=== PATIENT | female | born 1950 | race Two or more races ===

== ENCOUNTER 2021-11-30 09:14 | Outpatient (REF) | payer OTHER, SELFPAY ==
[2021-11-30 10:47] LABS: MANUAL DIFF FLAG NO
[2021-11-30 11:22] LABS: Basophils Absolute Auto 0.1 X10*3/uL (0.0-0.2); Basophils Percent Auto 0.9 % (0-2); Eosinophils Absolute Auto 0.2 X10*3/uL (0.0-0.4); Eosinophils Percent Auto 3.1 % (0-4); Hematocrit 40.5 % (37.0-47.0); Hemoglobin 12.6 g/dl (12.0-16.0); Imm Gran Abs Auto 0.02 X10*3/uL (0.00-0.03); Imm Gran Pct Auto 0.4 % (0.0-0.4); Lymphocytes Absolute Auto 0.7 X10*3/uL (1.2-4.9); Lymphocytes Percent Auto 12.3 % (20-40); Mean Corpuscular HGB Conc 31.1 g/dl (31.0-35.0); Mean Corpuscular Hemoglobin 25.7 pg (27.0-33.0); Mean Corpuscular Volume 82.5 fL (80.0-98.0); Monocytes Absolute Auto 0.5 X10*3/uL (0.1-1.2); Monocytes Percent Auto 8.8 % (2-11); Neutrophils Absolute Auto 4.1 x10*3/uL (2.0-8.3); Neutrophils Percent Auto 74.5 % (45-73); Platelet Count 308 X10*3/uL (160-400); Red Blood Count 4.91 X10*6/uL (4.20-5.50); Red Cell Distribution Width 16.4 % (11.0-16.0); White Blood Count 5.5 X10*3/uL (4.8-10.8)
[2021-11-30 12:02] LABS: B Type Natriuretic Peptide 33 pg/mL (<100)
[2021-11-30 12:04] LABS: Alanine Aminotransferase 23 U/L (0-31); Alkaline Phosphatase 190 U/L (39-117); Anion Gap 15 (12-20); Aspartate Amino Transferase 27 U/L (5-31); Bilirubin Direct 0.6 mg/dL (0.0-0.5); Bilirubin Total 1.4 mg/dL (0.0-1.0); Blood Urea Nitrogen 21 mg/dL (9-16); Carbon Dioxide 25 mmol/L (22-29); Chloride 103 mmol/L (96-108); Estimated Glomerular Filt Rate > 60; Glucose Random 97 mg/dL (60-115); Lactate Dehydrogenase 243 U/L (122-220); Potassium 4.1 mmol/L (3.3-5.1); Sodium 139 mmol/L (135-145); Total Protein 8.9 g/dL (6.5-8.0)
[2021-11-30 12:21] LABS: Erythrocyte Sedimentation Rate 53 MM/HR (0-20)
[2021-12-02 23:02] LABS: ANA Pattern 2 Nuclear, Homogeneous; Anti Nuclear Antibody Screen POSITIVE (NEGATIVE)
[2021-12-05 17:21] LABS: Asperg fumigatus Precip Abs NEGATIVE (NEGATIVE); Micropoly faeni Abs NEGATIVE (NEGATIVE); Pigeon serum Abs NEGATIVE (NEGATIVE); Saccharo pora viridis Abs NEGATIVE (NEGATIVE); Thermo candidus Abs NEGATIVE (NEGATIVE); Thermoa vulgaris #1 NEGATIVE (NEGATIVE)
[2021-12-07 09:27] LABS: Angiotensin Converting Enzyme 157 U/L (9-67)
== END 2021-11-30 09:15 | disposition home or self-care (01) ==
LOC: HO.LAB 09:14
PROVIDERS: PCP Family Medicine; Visit Provider Hospitalist
DX: R60.0 Localized edema (principal); D86.9 Sarcoidosis, unspecified; K74.60 Unspecified cirrhosis of liver; R91.8 Other nonspecific abnormal finding of lung field; R59.1 Generalized enlarged lymph nodes; I50.9 Heart failure, unspecified
CPT/HCPCS: 36415; 80048; 80076; 82164; 83615; 83880; 85025; 85652; 86038; 86039; 86331; 86606; 86609; 94618; 99202

== ENCOUNTER 2021-12-25 08:46 | Outpatient (REF) | payer OTHER, SELFPAY ==
--- NOTE | 2021-12-25 13:17 | PFT_ITS ---
Forced vital capacity 80%, FEV1 84%. FEF 25/75, 95% and MVV 71%. Post bronchodilator therapy, there is no change. Total lung capacity 72% and residual volume 67%. Diffusion capacity 67%. CONCLUSION: Mild degree of restrictive pulmonary disorder. No obstructive airway disorder. No response to bronchodilator therapy. MD MARIFER Andrew/MOHAN / [id number]
== END 2021-12-25 08:47 | disposition home or self-care (01) ==
LOC: HO.RESP 08:46
PROVIDERS: PCP Family Medicine; Visit Provider Hospitalist
DX: R06.00 Dyspnea, unspecified (principal); D86.9 Sarcoidosis, unspecified
CPT/HCPCS: 94060; 94727; 94729

== ENCOUNTER → 2022-01-05 08:35 | Outpatient (BNVA) | payer OTHER, SELFPAY | PROVIDERS: PCP Family Medicine; Visit Provider Hospitalist | DX: D86.9 Sarcoidosis, unspecified (principal); R91.8 Other nonspecific abnormal finding of lung field; R60.0 Localized edema; K74.60 Unspecified cirrhosis of liver; R59.1 Generalized enlarged lymph nodes; Z79.899 Other long term (current) drug therapy | CPT/HCPCS: 99212 ==

== ENCOUNTER 2022-03-22 11:44 | Outpatient (REF) | payer OTHER, SELFPAY ==
[2022-03-22 13:46] LABS: MANUAL DIFF FLAG NO
[2022-03-22 13:57] LABS: Hemoglobin 12.4 g/dl (12.0-16.0); Imm Gran Abs Auto 0.04 X10*3/uL (0.00-0.03); PLT CLUMP 1; Red Cell Distribution Width 18.4 % (11.0-16.0); SCAN SMEAR FLAG 1
[2022-03-22 13:59] LABS: Basophils Percent Auto 0.5 % (0-2); Eosinophils Absolute Auto 0.1 X10*3/uL (0.0-0.4); Eosinophils Percent Auto 1.9 % (0-4); Imm Gran Pct Auto 0.6 % (0.0-0.4); Lymphocytes Absolute Auto 1.2 X10*3/uL (1.2-4.9); Lymphocytes Percent Auto 19.7 % (20-40); Mean Corpuscular Hemoglobin 26.3 pg (27.0-33.0); Mean Corpuscular Volume 84.7 fL (80.0-98.0); Monocytes Absolute Auto 0.5 X10*3/uL (0.1-1.2); Monocytes Percent Auto 7.9 % (2-11); Neutrophils Absolute Auto 4.3 x10*3/uL (2.0-8.3); Neutrophils Percent Auto 69.4 % (45-73); Red Blood Count 4.72 X10*6/uL (4.20-5.50)
[2022-03-22 14:01] LABS: INTERNATIONAL NORM RATIO 1.2 (0.9-1.1); Prothrombin Time 13.5 SEC (10.0-13.1)
[2022-03-22 14:20] LABS: Alanine Aminotransferase 25 U/L (0-31); Albumin Level 4.1 g/dL (3.5-5.0); Alkaline Phosphatase 97 U/L (39-117); Anion Gap 11 (12-20); Aspartate Amino Transferase 17 U/L (5-31); Bilirubin Total 1.4 mg/dL (0.0-1.0); Blood Urea Nitrogen 18 mg/dL (9-16); Calcium 9.7 mg/dL (8.4-10.2); Carbon Dioxide 28 mmol/L (22-29); Chloride 107 mmol/L (96-108); Estimated Glomerular Filt Rate > 60; Glucose Random 91 mg/dL (60-115); Iron 56 mcg/dL (30-160); Percent Iron Saturation 15 % (15-50); Potassium 4.5 mmol/L (3.3-5.1); Sodium 141 mmol/L (135-145); Total Iron Binding Capacity 373 mcg/dL (228-428); Total Protein 7.6 g/dL (6.5-8.0); Unsaturated Iron Binding 317 ug/dL
[2022-03-22 14:31] LABS: White Blood Count 6.2 X10*3/uL (4.8-10.8)
[2022-03-22 14:42] LABS: Ferritin 109 ng/mL (10-250); TSH reflex Free T4 2.95 uIU/mL (0.32-4.0); Vitamin D 25-OH Total 11.6 ng/mL (>30)
[2022-03-22 14:52] LABS: Folate 17.6 ng/mL (> or = 4.0); Vitamin B12 493 pg/mL (200-900)
[2022-03-23 07:10] LABS: HBS Num1 0.81 mIU/mL (0-7.99); HBc Num1 0.08 S/CO (0.00-0.79); HBsAGNum1 0.15 S/CO (0.00-0.99); Hepatitis B Core Antibody Nonreactive (Nonreactive); Hepatitis B Surface Antigen Negative (Negative); ~HepC Num1 0.05 S/CO (0.00-0.79); ~Hepatitis B Surface Antibody NONREACTIVE (Nonreactive); ~Hepatitis C Antibody Nonreactive (Nonreactive)
[2022-03-24 05:12] LABS: Hepatitis A Antibody IgM 0.28 Index (0-0.79); ~Hepatitis A Antibody IgM Nonreactive (Nonreactive)
[2022-03-24 12:41] LABS: Gliadin Deamidated IgA Ab <1.0 U/mL; Gliadin Deamidated IgG Ab 2.9 U/mL
[2022-03-24 12:47] LABS: Transglutaminase Ab IgG 1.9 U/mL; Transglutaminase IgA <1.0 U/mL
[2022-03-24 14:18] LABS: Alpha 1 Anti-trypsin 177 mg/dL (83-199); Ceruloplasmin 33 mg/dL (18-53); IgA 402 mg/dL (70-320); IgG 1634 mg/dL (600-1540); IgM 76 mg/dL (50-300)
[2022-03-24 15:32] LABS: Immunoglobulin G Subclass 1 1000 mg/dL (382-929); Immunoglobulin G Subclass 2 246 mg/dL (241-700); Immunoglobulin G Subclass 3 20 mg/dL (22-178); Immunoglobulin G Subclass 4 65.3 mg/dL (4-86); Immunoglobulin G Total 1462 mg/dL (600-1540)
[2022-03-26 06:07] LABS: Aldolase 4.2 U/L (<=8.1)
[2022-03-26 21:47] LABS: Zinc 72 mcg/dL (60-130)
[2022-03-27 12:11] LABS: Vitamin K1 518 pg/mL (130-1500)
[2022-03-27 12:26] LABS: Vitamin B6 2.6 ng/mL (2.1-21.7)
[2022-03-27 12:42] LABS: Mitochondrial Antibodies NEGATIVE (NEGATIVE)
[2022-03-27 15:32] LABS: Nicotinamide 47 ng/mL; Vit B3 - Nicotinic Acid <20 ng/mL; Vitamin B5 (Pantothenic Acid) 55 ng/mL (<275)
[2022-03-27 18:07] LABS: Vitamin C 0.5 mg/dL (0.3-2.7)
[2022-03-28 00:04] LABS: Alpha-Tocopherol 12.8 mg/L (5.7-19.9)
[2022-03-28 06:47] LABS: Alk.Phos Iso. Macrohepatic 0 % (<=0); Alk.Phos Isoenzymes Bone 31 % (28-66); Alk.Phos Isoenzymes Intest 16 % (1-24); Alk.Phos Isoenzymes Liver 53 % (25-69); Alk.Phos Isoenzymes Placental 0 % (<=0); Alk.Phos Isoenzymes Total 87 U/L (37-153)
[2022-03-28 18:26] LABS: Vitamin A 42 mcg/dL (38-98)
[2022-03-30 23:16] LABS: Liver Kidney Microsomal Ab <=20.0 U (<=20.0); Smooth Muscle Antibody <20 U (<20)
[2022-03-31 05:42] LABS: Soluble Liver Ag Autoantibody <20.1 U (0.0-20.0)
== END 2022-03-22 11:45 | disposition home or self-care (01) ==
LOC: HO.LAB 11:44
PROVIDERS: PCP Family Medicine; Referring Provider Hospitalist; Visit Provider Internal Medicine Gastroenterology
DX: K75.81 Nonalcoholic steatohepatitis (NASH) (principal); K74.60 Unspecified cirrhosis of liver; D86.9 Sarcoidosis, unspecified; R59.1 Generalized enlarged lymph nodes; R79.89 Other specified abnormal findings of blood chemistry; E83.52 Hypercalcemia; G89.29 Other chronic pain; R10.33 Periumbilical pain
CPT/HCPCS: 36415; 80053; 82085; 82103; 82180; 82306; 82390; 82550; 82607; 82728; 82746; 82784; 83520; 83540; 84080; 84207; 84443; 84446; 84590; 84591; 84597; 84630; 85025; 85610; 86015; 86255; 86256; 86258; 86364; 86376; 86704; 86706; 86709; 86803; 87340; 99202

== ENCOUNTER → 2022-04-19 10:44 | Outpatient (BNVA) | payer OTHER, SELFPAY | PROVIDERS: PCP Family Medicine; Visit Provider Hospitalist | DX: R60.0 Localized edema (principal); Z23 Encounter for immunization | CPT/HCPCS: 90471; 90677; 90732; 99212 ==

== ENCOUNTER 2022-05-12 08:19 | Outpatient (REF) | payer OTHER, SELFPAY ==
--- NOTE | ~2022-05-12 | US_ITS ---
EXAMINATION: US ABDOMEN LIMITED WITH LIVER ELASTOGRAPHY CLINICAL INFORMATION: Cirrhosis and sarcoidosis. Lymphadenopathy. COMPARISON: None. TECHNIQUE: Real-time imaging of the abdominal viscera. Noninvasive ultrasound liver fibrosis assessment is performed using Bessy ElastPQ point quantification shear wave elastography (2D-SWE) with a C5-2 MHz transducer. Multiple elastography samples are obtained. FINDINGS: PANCREAS: Normal. LIVER: Liver echotexture is slightly increased and heterogeneous suggestive of hepatocellular disease. There are mild cirrhotic changes of the liver with scalloped contour. No focal liver lesion or biliary duct dilatation. The right lobe measures 16 cm in length. The left lobe measures 12 cm in length. Portal flow is normal/hepatopedal Shear wave liver elastography median stiffness is 1.8 m/s (reference: normal median stiffness is 1.3 m/s or less). IQR/median stiffness to assess sampling precision is 0.19 (reference: good quality data set is IQR/median stiffness of 0.15 or less). GALLBLADDER: Surgically removed COMMON BILE DUCT: Normal in caliber measuring 0.2 cm in diameter. RIGHT KIDNEY: Normal. No hydronephrosis. No renal calculi or focal parenchymal lesions. The kidney measures 11.4 cm in maximum dimension. FREE FLUID: None. No lymphadenopathy is appreciated. US/US abdomen portillo w elastography IMPRESSION: 1. Impression: Cirrhotic-appearing liver. No lymphadenopathy appreciated. 2. Liver elastography: Limited due to sampling error. REFERENCE: Society of Radiologists in Ultrasound Liver Stiffness Thresholds (2020): LIVER STIFFNESS THRESHOLDS: *Liver Stiffness equal or less than 1.3 m/s: High probability of being normal. *Liver Stiffness less than 1.7 m/s: In the absence of other known clinical signs, rules out compensated advanced chronic liver disease. *Liver Stiffness 1.7-2.1 m/s: Suggestive of compensated advanced chronic liver disease but need further test for confirmation. *Liver Stiffness over 2.1 m/s: Rules in compensated advanced chronic liver disease. *Liver Stiffness over 2.4 m/s: Suggestive of clinically significant portal hypertension. QUALITY OF DATA SET: *IQR/Median value equal or less than 0.15 implies a quality data set. *IQR/Median value over 0.15 implies a poor quality data set. SIGNIFICANT CHANGE FROM PRIOR EXAM: Significant change if liver stiffness measurement is 10% or greater from prior exam. OTHER CONSIDERATIONS: The stage of liver fibrosis may be overestimated in the setting of acute hepatitis, liver inflammation, elevated liver function tests, hepatic vascular congestion, obstructive cholestasis, non-fasting state, and infiltrative diseases such as amyloidosis and lymphoma. In some patients with NAFLD, the liver stiffness thresholds for compensated advanced chronic liver disease may be lower. In causes other than viral hepatitis and NAFLD, liver stiffness thresholds are not well established.
== END 2022-05-12 08:20 | disposition home or self-care (01) ==
LOC: HO.US 08:19
PROVIDERS: Visit Provider Internal Medicine Gastroenterology
DX: K74.60 Unspecified cirrhosis of liver (principal); R59.1 Generalized enlarged lymph nodes; D86.9 Sarcoidosis, unspecified
CPT/HCPCS: 76705; 76981

== ENCOUNTER 2022-06-25 11:13 | Outpatient (REF) | payer OTHER, SELFPAY ==
[2022-06-25 11:48] LABS: MANUAL DIFF FLAG NO
[2022-06-25 12:25] LABS: Basophils Absolute Auto 0.1 X10*3/uL (0.0-0.2); Eosinophils Absolute Auto 0.1 X10*3/uL (0.0-0.4); Eosinophils Percent Auto 2.9 % (0-4); Hematocrit 40.4 % (37.0-47.0); Hemoglobin 12.9 g/dl (12.0-16.0); Imm Gran Abs Auto 0.03 X10*3/uL (0.00-0.03); Imm Gran Pct Auto 0.6 % (0.0-0.4); Lymphocytes Percent Auto 21.1 % (20-40); Mean Corpuscular HGB Conc 31.9 g/dl (31.0-35.0); Mean Corpuscular Hemoglobin 26.9 pg (27.0-33.0); Mean Corpuscular Volume 84.3 fL (80.0-98.0); Mean Platelet Volume 9.9 fL (9.4-12.3); Monocytes Absolute Auto 0.5 X10*3/uL (0.1-1.2); Monocytes Percent Auto 10.8 % (2-11); Neutrophils Absolute Auto 3.1 x10*3/uL (2.0-8.3); Neutrophils Percent Auto 63.6 % (45-73); Platelet Count 265 X10*3/uL (160-400); Red Blood Count 4.79 X10*6/uL (4.20-5.50); Red Cell Distribution Width 14.8 % (11.0-16.0); White Blood Count 4.9 X10*3/uL (4.8-10.8)
[2022-06-25 12:46] LABS: Alanine Aminotransferase 14 U/L (0-31); Albumin Level 4.1 g/dL (3.5-5.0); Alkaline Phosphatase 115 U/L (39-117); Anion Gap 16 (12-20); Aspartate Amino Transferase 17 U/L (5-31); Bilirubin Direct 0.7 mg/dL (0.0-0.5); Blood Urea Nitrogen 16 mg/dL (9-16); Calcium 9.7 mg/dL (8.4-10.2); Carbon Dioxide 24 mmol/L (22-29); Chloride 103 mmol/L (96-108); Estimated Glomerular Filt Rate > 60; Glucose Random 84 mg/dL (60-115); Potassium 3.9 mmol/L (3.3-5.1); Sodium 139 mmol/L (135-145); Total Protein 7.7 g/dL (6.5-8.0)
[2022-06-25 13:08] LABS: Erythrocyte Sedimentation Rate 28 MM/HR (0-20)
[2022-06-28 21:32] LABS: TS Negative Control Passed; TS Panel A 1; TS Panel B 0; TS Positive Control Passed; TSpotTB Negative (Negative)
[2022-06-29 20:41] LABS: Anti DNA DS Antibody <1 IU/mL; Scleroderma 70 Antibody <1.0 NEG AI (<1.0 NEG)
[2022-07-01 06:04] LABS: Angiotensin Converting Enzyme 62 U/L (9-67)
[2022-07-01 14:36] LABS: Anti Nuclear Antibody Screen POSITIVE (NEGATIVE)
[2022-07-01 14:41] LABS: Anti Nuclear Antibody Pattern Nuclear, Homogeneous
== END 2022-06-25 11:14 | disposition home or self-care (01) ==
LOC: HO.LAB 11:13
PROVIDERS: Visit Provider Hospitalist
DX: R91.8 Other nonspecific abnormal finding of lung field (principal); R59.1 Generalized enlarged lymph nodes; K74.60 Unspecified cirrhosis of liver; D86.9 Sarcoidosis, unspecified; R76.8 Other specified abnormal immunological findings in serum; R60.0 Localized edema
CPT/HCPCS: 36415; 80048; 80076; 82164; 85025; 85652; 86038; 86039; 86225; 86235; 86481; 99212

== ENCOUNTER 2022-09-23 09:45 | Outpatient (REF) | payer OTHER, SELFPAY ==
[2022-09-23 10:10] LABS: MANUAL DIFF FLAG NO
[2022-09-23 11:04] LABS: Basophils Absolute Auto 0.1 X10*3/uL (0.0-0.2); Eosinophils Absolute Auto 0.1 X10*3/uL (0.0-0.4); Eosinophils Percent Auto 1.4 % (0-4); Hematocrit 40.3 % (37.0-47.0); Hemoglobin 12.6 g/dl (12.0-16.0); Imm Gran Abs Auto 0.03 X10*3/uL (0.00-0.03); Imm Gran Pct Auto 0.5 % (0.0-0.4); Lymphocytes Percent Auto 16.3 % (20-40); Mean Corpuscular HGB Conc 31.3 g/dl (31.0-35.0); Mean Corpuscular Hemoglobin 25.1 pg (27.0-33.0); Mean Corpuscular Volume 80.4 fL (80.0-98.0); Monocytes Absolute Auto 0.6 X10*3/uL (0.1-1.2); Monocytes Percent Auto 10.1 % (2-11); Neutrophils Absolute Auto 4.4 x10*3/uL (2.0-8.3); Neutrophils Percent Auto 70.7 % (45-73); Platelet Count 262 X10*3/uL (160-400); Red Blood Count 5.01 X10*6/uL (4.20-5.50); Red Cell Distribution Width 15.9 % (11.0-16.0); White Blood Count 6.3 X10*3/uL (4.8-10.8)
[2022-09-23 11:29] LABS: Alanine Aminotransferase 18 U/L (0-31); Albumin Level 4.1 g/dL (3.5-5.0); Alkaline Phosphatase 132 U/L (39-117); Anion Gap 16 (12-20); Aspartate Amino Transferase 18 U/L (5-31); Bilirubin Direct 0.5 mg/dL (0.0-0.5); Bilirubin Total 1.7 mg/dL (0.0-1.0); Blood Urea Nitrogen 25 mg/dL (9-16); Calcium 9.7 mg/dL (8.4-10.2); Carbon Dioxide 22 mmol/L (22-29); Chloride 105 mmol/L (96-108); Estimated Glomerular Filt Rate > 60; Glucose Random 93 mg/dL (60-115); Potassium 4.2 mmol/L (3.3-5.1); Sodium 139 mmol/L (135-145)
[2022-09-24 17:08] LABS: Complement C3 158 mg/dL (83-193)
[2022-09-24 19:37] LABS: Anti DNA DS Antibody <1 IU/mL; Scleroderma 70 Antibody <1.0 NEG AI (<1.0 NEG)
[2022-09-27 19:18] LABS: Smooth Muscle Antibody <20 U (<20)
[2022-09-29 14:33] LABS: Angiotensin Converting Enzyme 88.8 U/L (9-67)
== END 2022-09-23 09:46 | disposition home or self-care (01) ==
LOC: HO.LAB 09:45
PROVIDERS: PCP Family Medicine; Visit Provider Hospitalist
DX: D86.9 Sarcoidosis, unspecified (principal); K74.60 Unspecified cirrhosis of liver; R91.8 Other nonspecific abnormal finding of lung field; R59.1 Generalized enlarged lymph nodes; R76.8 Other specified abnormal immunological findings in serum
CPT/HCPCS: 36415; 80048; 80076; 82164; 85025; 86015; 86160; 86225; 86235

== ENCOUNTER → 2022-11-01 10:50 | Outpatient (BNVA) | payer OTHER, SELFPAY | PROVIDERS: PCP Family Medicine; Visit Provider Hospitalist | DX: D86.9 Sarcoidosis, unspecified (principal); R91.8 Other nonspecific abnormal finding of lung field; R60.0 Localized edema; K74.60 Unspecified cirrhosis of liver; R59.1 Generalized enlarged lymph nodes; R76.8 Other specified abnormal immunological findings in serum | CPT/HCPCS: 99212 ==

== ENCOUNTER 2023-02-04 09:53 | Outpatient (REF) | payer OTHER, SELFPAY ==
[2023-02-04 11:17] LABS: MANUAL DIFF FLAG NO
[2023-02-04 12:28] LABS: Basophils Absolute Auto 0.1 X10*3/uL (0.0-0.2); Basophils Percent Auto 1.5 % (0-2); Eosinophils Absolute Auto 0.2 X10*3/uL (0.0-0.4); Hematocrit 40.1 % (37.0-47.0); Hemoglobin 12.2 g/dl (12.0-16.0); Imm Gran Abs Auto 0.01 X10*3/uL (0.00-0.03); Imm Gran Pct Auto 0.2 % (0.0-0.4); Lymphocytes Percent Auto 20.2 % (20-40); Mean Corpuscular HGB Conc 30.4 g/dl (31.0-35.0); Mean Corpuscular Volume 82.2 fL (80.0-98.0); Mean Platelet Volume 9.9 fL (9.4-12.3); Monocytes Absolute Auto 0.6 X10*3/uL (0.1-1.2); Monocytes Percent Auto 12.7 % (2-11); Neutrophils Percent Auto 61.4 % (45-73); Platelet Count 282 X10*3/uL (160-400); Red Blood Count 4.88 X10*6/uL (4.20-5.50); Red Cell Distribution Width 16.2 % (11.0-16.0); White Blood Count 4.8 X10*3/uL (4.8-10.8)
[2023-02-04 13:18] LABS: Erythrocyte Sedimentation Rate 29 MM/HR (0-20)
[2023-02-04 13:36] LABS: Alanine Aminotransferase 12 U/L (0-31); Alkaline Phosphatase 129 U/L (39-117); Anion Gap 14 (12-20); Aspartate Amino Transferase 21 U/L (5-31); Bilirubin Direct 0.6 mg/dL (0.0-0.5); Bilirubin Total 2.2 mg/dL (0.0-1.0); Blood Urea Nitrogen 17 mg/dL (9-16); Calcium 9.8 mg/dL (8.4-10.2); Carbon Dioxide 22 mmol/L (22-29); Chloride 107 mmol/L (96-108); Estimated Glomerular Filt Rate > 60; Glucose Random 91 mg/dL (60-115); Potassium 4.7 mmol/L (3.3-5.1); Sodium 138 mmol/L (135-145); Total Protein 8.2 g/dL (6.5-8.0)
[2023-02-09 15:53] LABS: Angiotensin Converting Enzyme 138.1 U/L (9-67)
== END 2023-02-04 09:54 | disposition home or self-care (01) ==
LOC: HO.LAB 09:53
PROVIDERS: PCP Family Medicine; Visit Provider Hospitalist
DX: R60.0 Localized edema (principal); R91.8 Other nonspecific abnormal finding of lung field; D86.9 Sarcoidosis, unspecified; K74.60 Unspecified cirrhosis of liver; R59.1 Generalized enlarged lymph nodes; R76.8 Other specified abnormal immunological findings in serum
CPT/HCPCS: 36415; 80048; 80076; 82164; 85025; 85652; 99212

== ENCOUNTER 2023-05-05 08:48 | Outpatient (REF) | payer OTHER, SELFPAY ==
[2023-05-05 09:04] LABS: MANUAL DIFF FLAG NO
[2023-05-05 09:54] LABS: Basophils Absolute Auto 0.1 X10*3/uL (0.0-0.2); Basophils Percent Auto 1.3 % (0-2); Eosinophils Absolute Auto 0.2 X10*3/uL (0.0-0.4); Eosinophils Percent Auto 4.1 % (0-4); Hematocrit 41.9 % (37.0-47.0); Hemoglobin 12.8 g/dl (12.0-16.0); Imm Gran Abs Auto 0.01 X10*3/uL (0.00-0.03); Imm Gran Pct Auto 0.2 % (0.0-0.4); Lymphocytes Absolute Auto 0.8 X10*3/uL (1.2-4.9); Lymphocytes Percent Auto 17.8 % (20-40); Mean Corpuscular HGB Conc 30.5 g/dl (31.0-35.0); Mean Corpuscular Hemoglobin 25.7 pg (27.0-33.0); Mean Corpuscular Volume 84.1 fL (80.0-98.0); Mean Platelet Volume 10.4 fL (9.4-12.3); Monocytes Absolute Auto 0.5 X10*3/uL (0.1-1.2); Monocytes Percent Auto 11.6 % (2-11); Platelet Count 292 X10*3/uL (160-400); Red Blood Count 4.98 X10*6/uL (4.20-5.50); Red Cell Distribution Width 17.2 % (11.0-16.0); White Blood Count 4.7 X10*3/uL (4.8-10.8)
[2023-05-05 10:34] LABS: Alanine Aminotransferase 9 U/L (0-31); Albumin Level 4.1 g/dL (3.5-5.0); Alkaline Phosphatase 134 U/L (39-117); Anion Gap 13 (12-20); Aspartate Amino Transferase 21 U/L (5-31); Bilirubin Direct 0.6 mg/dL (0.0-0.5); Bilirubin Total 1.6 mg/dL (0.0-1.0); Blood Urea Nitrogen 17 mg/dL (9-16); Calcium 10.4 mg/dL (8.4-10.2); Carbon Dioxide 24 mmol/L (22-29); Chloride 106 mmol/L (96-108); Estimated Glomerular Filt Rate > 60; Glucose Random 96 mg/dL (60-115); Potassium 4.6 mmol/L (3.3-5.1); Sodium 138 mmol/L (135-145)
[2023-05-05 10:37] LABS: Erythrocyte Sedimentation Rate 38 MM/HR (0-20)
[2023-05-10 22:03] LABS: Angiotensin Converting Enzyme 144.8 U/L (9-67)
== END 2023-05-05 08:49 | disposition home or self-care (01) ==
LOC: HO.LAB 08:48
PROVIDERS: PCP Internal Medicine; Visit Provider Hospitalist
DX: D86.9 Sarcoidosis, unspecified (principal); R59.1 Generalized enlarged lymph nodes; R91.8 Other nonspecific abnormal finding of lung field
CPT/HCPCS: 36415; 80048; 80076; 82164; 85025; 85652

== ENCOUNTER 2023-06-06 10:50 | Outpatient (REF) | payer OTHER, SELFPAY ==
--- NOTE | ~2023-06-06 | XR_ITS ---
EXAMINATION: XR LUMBOSACRAL SPINE CLINICAL INFORMATION: Dorsalgia COMPARISON: None available. TECHNIQUE: Three views of the lumbosacral spine. FINDINGS: Demineralization. Dextroscoliosis. 5 lumbar type vertebral bodies are identified. There appears to be mild vertebral body height loss of L2. Pedicles and SI joints within normal limits. Bilateral mild hip joint narrowings. Surgical clips right upper quadrant and overlying the left iliac wing. Vascular calcifications. XR/XR lumbar spine 2-3V IMPRESSION: Demineralization and scoliosis.
== END 2023-06-06 10:51 | disposition home or self-care (01) ==
LOC: HO.XRAY 10:50
PROVIDERS: PCP Family Medicine; Visit Provider Hospitalist
DX: M54.9 Dorsalgia, unspecified (principal); R60.0 Localized edema; R91.8 Other nonspecific abnormal finding of lung field; D86.9 Sarcoidosis, unspecified; K74.60 Unspecified cirrhosis of liver; R59.1 Generalized enlarged lymph nodes; R76.8 Other specified abnormal immunological findings in serum
CPT/HCPCS: 72100; 99212

== ENCOUNTER 2023-06-06 10:50 | Outpatient (AMB) | payer OTHER, SELFPAY ==
[2023-06-06 11:12] VITALS: PULSE 74; O2SAT 97; BMI 30.3
--- NOTE | 2023-06-06 11:12 | A.OFFVIS_ITS ---
Intake Vital Signs 06/06/23 11:12 Height 4 ft 11 in Weight 150 lb 2.157 oz BMI 30.3 Pulse 74 Pulse Source Pulse Oximeter Pulse Oximetry (%) 97 Oxygen Delivery Method Room Air Intake Visit Reasons: Pulmonary Nodule Compotype Operator Required: No Allergies No Known Allergies Allergy (Verified 06/06/23 11:14) HPI HPI Comments History of Present Illness Details The Patient is a 73-year-old woman with a pretty unremarkable past medical history until the last several months. She was noted to have a masslike density in her neck. She did have a CT scan of the neck which was abnormal. Therefore she did undergo a CT scan of the chest and also CT scan of the abdomen and pelvis. She was found to have numerous subcentimeter pulmonary nodules in a bronchovascular distribution and significant lymphadenopathy both in the mediastinum and also the hilum. She did undergo CT-guided biopsy or a image guided biopsy of her neck masslike density. Apparently per report was consistent with granulomas in a diagnosis of sarcoidosis. In the meantime the patient has been describing increasing dyspnea on exertion. She is also demonstrating worsening lower extremity edema. She has also started describing numbness of the lower extremities. It is hard to know have all the symptoms are related to sarcoid or a different etiology. Upon looking at the CT scan of the chest, the report also mentioned that she had evidence of abnormal contour of the liver suggesting liver cirrhosis. Explained to them that this could also be playing a role with her lower extremity edema. It is hard to know for sure if her liver cirrhosis is related to extrapulmonary sarcoidosis or different condition altogether. Will have her undergo blood work and also may need a GI consultation to further evaluate the possibility of cirrhosis. 01/05/2022 the patient is here for a pulmo anjaliy follow-up visit. Overall she is feeling better. She did take to smoke on a course of prednisone and she did feel significantly better. She is no longer on the prednisone. She has been using the gabapentin for sleep with good effect. In regarding all the cirrhosis the suspicion is that it may be related to the underlying sarcoidosis. We did refer her to GI and did call her. However she missed the call. She will call them to make an appointment to be evaluated for the cirrhosis and to see if is related to the sarcoidosis. In the meantime we did review her blood work demonstrating a significantly elevated Gerson level consistent with active sarcoidosis. We also reviewed her pulmonary function studies demonstrating mild restriction with a mild diffusion impairment likely from the underlying parenchymal lung disease. In addition to that her TACOS was elevated. Will go ahead and have her undergo additional testing at this time. 04/19/2022 the patient is here for a pulmonary follow-up visit. The patient still is doing well. Denies any significant shortness of breath or cough. She has been having issues with weight gain specially because the prednisone. Currently she is down to 10 mg of prednisone. She did follow-up with GI and she did have numerous laboratory studies which were all reassuring. In addition to that she is scheduled to undergo an ultrasound of the abdomen in the coming weeks. Will plan to try decrease her prednisone a little bit more and then keep her on anti she has additional blood work. Therefore will bring her down to 7.5 mg of prednisone with hopes that is still controls her symptoms. Will recheck a blood work prior to the next visit. During that next visit will decide when to repeat her CT scan of the chest. the patient has been using her diuretics. She still has some lower extremity edema. She needs compression stockings. I did give her script. she will go ahead and take additional Lasix for the next 3 days. 06/25/2022 the patient is here for pulmo nary follow-up visit. Overall she is doing well. The patient continues on the 7.5 mg prednisone daily. She is monitoring her sugars. Her last blood work demonstrated elevations in her total bilirubin and also her Gerson level. Will plan to repeat those results. I am hopeful that the Gerson level now is within normal. Is she still demonstrates active sarcoid activity even on the prednisone will consider an alternative agent such as Remicade to 4 there are stabilize her inflammatory process. The patient has liver disease to the use of immunomodulators will be contraindicated. Her cough is overall better. Still has intermittent coughing denies any significant shortness of breath at rest. She did have her eye exam diet no evidence of any uveitis her patient's report at this time. 11/01/2022 the patient is here for a pulm onary follow-up visit. Overall that she is doing well from a respiratory status. She had been on prednisone 7.5 mg daily. We had done blood work in her Gerson level was increasing. Therefore I did call the patient's daughter and we increased her prednisone to 10 mg daily. She seems to be tolerating that well. The rest of the blood work is reassuring. Her LFTs were improving with the total bilirubin going from 2 to will now 1.7. She is noticing some lower extremity edema. I explained to them that this is probably due to the underlying liver cirrhosis. The patient does not have any evidence of ascites. She was followed by GI and did have an ultrasound of the liver but she has not had any follow-up appointments ever since then. Will have her undergo additional blood work in 3 months time. If she has any worsening liver function studies or any concerns she needs to go back to GI. In addition to this if the patient continues have any evidence of any active sarcoidosis on the 10 mg of prednisone we will consider Remicade as an alternative. With her liver cirrhosis using immunomodulator therapy may be relatively contraindicated. 02/04/2023 the patient is here for a pulmonary follow-up visit. Overall respiratory status seems to be stable. No significant coughing. Her major complaint significant lower extremity edema. She has been on diuresis. However likely with her liver cirrhosis resulting significant lower extremity edema. Will go ahead and increase her diuretic for the next Few days. She may benefit from Aldactone although this will have to be discussed further with her GI team. In the meantime we did review her recent CT scan of the chest demonstrating increasing the interval pulmonary nodules in the lungs suggesting of her sarcoidosis is still active. We did try to get her to a low dose on the prednisone of 10 mg which she seems to be tolerating better than previously. Still, the patient likely needs additional immunosuppression. In view of her liver cirrhosis we have to be careful with her potential medication adverse effects. Imuran will be a good option in view of her liver cirrhosis. Still, will monitor her blood work closely to make sure she does not follow up any worsening liver failure. 06/06/2023 the patient is here for a pulm onary follow-up visit. Overall the patient is doing well. I had called her over the phone the last month to increase her Imuran to 2 tablets which is 100 mg daily. And also has been taking prednisone 10 mg daily. The reason for this was because her liver function studies were still elevated suggesting some degree of inflammation and her Gerson level still elevated. The patient seems to be tolerate well the increasing the medication. She does have issues with back pain. Primarily closer to the sacroiliac joint. This is look unlikely to be the area of the liver. The patient does not have any pain over the right upper quadrant. Still she should follow-up with Chip Tate since she has not seen a more than a year. Patient continues to have elevations in the liver function studies. Most likely this is all related to the sarcoid but they need to address the abnormalities as well. Patient also has been taking diuretics. She will continue to do so. Kidney function seems to be okay electrolytes as well. Will have her continue with the Imuran 100 mg daily in the prednisone 10 and will plan to follow-up with blood work in 2 months. If the blood work continues to be elevated suggesting continued inflammation and sarcoid activity will go ahead and increase the Imuran further to 150 mg if that is the case. If the patient does not respond to the immunomodulator therapy then we can consider biologic therapy. [facility] Medical History TACOS positive Lymphadenopathy Pulmonary nodules Sarcoidosis Surgical History Hx of bladder repair surgery Hx of colonoscopy Hx of tubal ligation Family History (Updated 03/22/22 @ 11:51 by KELLY Devlin) Mother Diabetes Brother Diabetes Brother Diabetes Social History Patient Tobacco Use Status: Never used Tobacco Review of Systems Const Denies fatigue and Reports weight gain Eyes Denies change in vision ENT Denies change in voice Card Denies chest pain, Reports leg edema and Reports dyspnea on exertion Resp Denies chest congestion, Denies cough, Denies pain on inspiration, Denies pain with cough, Reports dyspnea on exertion and Denies wheezing GI Reports no additional complaints Musc Reports back pain, Reports myalgias, Reports numbness and Reports tingling Skin/Breast Denies rash Neuro Reports numbness and Reports tingling Endo Denies fatigue Aller/Immun Denies wheezing Physical Exam Vital Signs: Last Vital Signs Pulse 74 06/06/23 11:12 Pulse Ox 97 06/06/23 11:12 Oxygen Delivery Method Room Air 06/06/23 11:12 BMI result Body Mass Index 30.3 Const General: alert Neck Neck: Yes normal visual inspection, Yes full ROM and Yes no lymphadenopathy Chest Chest palpation & inspection: normal inspection of the chest Resp Auscultation: no rhonchi, no wheezes and diminished lung sounds Cardio Rate: regular rate Rhythm: regular rhythm Heart sounds: S1 normal heart sound present and S2 normal heart sound present GI Palpation (GI): Soft to palpation and nontender Auscultation: normal bowel sounds Skin General skin exam: rashes and/or lesions noted Extrem General: No clubbing, No cyanosis and Yes edema Assessment & Plan Assessment & Plan (1) Sarcoidosis: Code(s): D86.9 - Sarcoidosis, unspecified (2) Pulmonary nodules: Code(s): R91.8 - Other nonspecific abnormal finding of lung field (3) Lower extremity edema: Code(s): R60.0 - Localized edema (4) Cirrhosis: Code(s): K74.60 - Unspecified cirrhosis of liver Qualifiers: Ascites presence: unspecified Hepatic cirrhosis type: unspecified hepatic cirrhosis Qualified Code(s): K74.60 - Unspecified cirrhosis of liver (5) Lymphadenopathy: Code(s): R59.1 - Generalized enlarged lymph nodes (6) TACOS positive: Code(s): R76.8 - Other specified abnormal immunological findings in serum Plan continue prednisone 10mg daily continue Imuran 100 mg daily Additional bloodwork in 6-[address] chest in 6-8 months compression stockings Lasix F/U 3 months Orders: Orders Complete Blood Count Auto Diff Today D86.9 - Sarcoidosis, unspecified, I50.9 - Heart failure, unspecified, R59.1 - Generalized enlarged lymph nodes, R91.8 - Other nonspecific abnormal finding of lung field Basic Metabolic Panel Today D86.9 - Sarcoidosis, unspecified, I50.9 - Heart failure, unspecified, R59.1 - Generalized enlarged lymph nodes, R91.8 - Other nonspecific abnormal finding of lung field Erythrocyte Sedimentation Rate Today D86.9 - Sarcoidosis, unspecified, I50.9 - Heart failure, unspecified, R59.1 - Generalized enlarged lymph nodes, R91.8 - Other nonspecific abnormal finding of lung field Liver Panel Today D86.9 - Sarcoidosis, unspecified, I50.9 - Heart failure, unspecified, R59.1 - Generalized enlarged lymph nodes, R91.8 - Other nonspecific abnormal finding of lung field Angiotensin Converting Enzyme Today D86.9 - Sarcoidosis, unspecified, I50.9 - Heart failure, unspecified, R59.1 - Generalized enlarged lymph nodes, R91.8 - Other nonspecific abnormal finding of lung field XR lumbar spine 2-3V Today M54.9 - Dorsalgia, unspecified Medications: New furosemide (Lasix) 40 mg (2 x 20 mg) PO DAILY 30 days 60 tabs 2RF Coding Level of Care Code Est Pt Level 4 (11014) Diagnoses Sarcoidosis D86.9 Pulmonary nodules R91.8 Lower extremity edema R60.0 Hepatic cirrhosis, unspecified hepatic cirrhosis type, unspecified whether ascites present K74.60 Ascites presence: unspecified Hepatic cirrhosis type: unspecified hepatic cirrhosis Lymphadenopathy R59.1 TACOS positive R76.8 Time Spent (min) 17
== END 2023-06-06 11:33 | disposition home or self-care (01) ==
PROVIDERS: PCP Family Medicine; Visit Provider Hospitalist
DX: D86.9 Sarcoidosis, unspecified (principal); R91.8 Other nonspecific abnormal finding of lung field; R60.0 Localized edema; K74.60 Unspecified cirrhosis of liver; R59.1 Generalized enlarged lymph nodes; R76.8 Other specified abnormal immunological findings in serum
CPT/HCPCS: 99214

== ENCOUNTER 2023-10-14 12:30 | Outpatient (AMB) | payer OTHER, SELFPAY ==
--- NOTE | 2023-10-14 12:56 | A.OFFVIS_ITS ---
Intake Vital Signs 10/14/23 12:58 Height 4 ft 11 in Weight 145 lb BMI 29.3 Respiration 78 H Pulse 78 Pulse Source Pulse Oximeter Pulse Oximetry (%) 98 Oxygen Delivery Method Room Air Intake Visit Reasons: pulm nodule [employer] Required: No Allergies No Known Allergies Allergy (Verified 10/14/23 13:00) HPI HPI Comments History of Present Illness Details The Patient is a 73-year-old woman with a pretty unremarkable past medical history until the last several months. She was noted to have a masslike density in her neck. She did have a CT scan of the neck which was abnormal. Therefore she did undergo a CT scan of the chest and also CT scan of the abdomen and pelvis. She was found to have numerous subcentimeter pulmonary nodules in a bronchovascular distribution and significant lymphadenopathy both in the mediastinum and also the hilum. She did undergo CT-guided biopsy or a image guided biopsy of her neck masslike density. Apparently per report was consistent with granulomas in a diagnosis of sarcoidosis. In the meantime the patient has been describing increasing dyspnea on exertion. She is also demonstrating worsening lower extremity edema. She has also started describing numbness of the lower extremities. It is hard to know have all the symptoms are related to sarcoid or a different etiology. Upon looking at the CT scan of the chest, the report also mentioned that she had evidence of abnormal contour of the liver suggesting liver cirrhosis. Explained to them that this could also be playing a role with her lower extremity edema. It is hard to know for sure if her liver cirrhosis is related to extrapulmonary sarcoidosis or different condition altogether. Will have her undergo blood work and also may need a GI consultation to further evaluate the possibility of cirrhosis. 01/05/2022 the patient is here for a alessandro grullon follow-up visit. Overall she is feeling better. She did take to smoke on a course of prednisone and she did feel significantly better. She is no longer on the prednisone. She has been using the gabapentin for sleep with good effect. In regarding all the cirrhosis the suspicion is that it may be related to the underlying sarcoidosis. We did refer her to GI and did call her. However she missed the call. She will call them to make an appointment to be evaluated for the cirrhosis and to see if is related to the sarcoidosis. In the meantime we did review her blood work demonstrating a significantly elevated Gerson level consistent with active sarcoidosis. We also reviewed her pulmonary function studies demonstrating mild restriction with a mild diffusion impairment likely from the underlying parenchymal lung disease. In addition to that her TACOS was elevated. Will go ahead and have her undergo additional testing at this time. 04/19/2022 the patient is here for a pulmonary follow-up visit. The patient still is doing well. Denies any significant shortness of breath or cough. She has been having issues with weight gain specially because the prednisone. Currently she is down to 10 mg of prednisone. She did follow-up with GI and she did have numerous laboratory studies which were all reassuring. In addition to that she is scheduled to undergo an ultrasound of the abdomen in the coming weeks. Will plan to try decrease her prednisone a little bit more and then keep her on anti she has additional blood work. Therefore will bring her down to 7.5 mg of prednisone with hopes that is still controls her symptoms. Will recheck a blood work prior to the next visit. During that next visit will decide when to repeat her CT scan of the chest. the patient has been using her diuretics. She still has some lower extremity edema. She needs compression stockings. I did give her script. she will go ahead and take additional Lasix for the next 3 days. 06/25/2022 the patient is here for pulmo nary follow-up visit. Overall she is doing well. The patient continues on the 7.5 mg prednisone daily. She is monitoring her sugars. Her last blood work demonstrated elevations in her total bilirubin and also her Gerson level. Will plan to repeat those results. I am hopeful that the Gerson level now is within normal. Is she still demonstrates active sarcoid activity even on the prednisone will consider an alternative agent such as Remicade to 4 there are stabilize her inflammatory process. The patient has liver disease to the use of immunomodulators will be contra indicated. Her cough is overall better. Still has intermittent coughing denies any significant shortness of breath at rest. She did have her eye exam diet no evidence of any uveitis her patient's report at this time. 11/01/2022 the patient is here for a pulm onary follow-up visit. Overall that she is doing well from a respiratory status. She had been on prednisone 7.5 mg daily. We had done blood work in her Gerson level was increasing. Therefore I did call the patient's daughter and we increased her prednisone to 10 mg daily. She seems to be tolerating that well. The rest of the blood work is reassuring. Her LFTs were improving with the total bilirubin going from 2 to will now 1.7. She is noticing some lower extremity edema. I explained to them that this is probably due to the underlying liver cirrhosis. The patient does not have any evidence of ascites. She was followed by GI and did have an ultrasound of the liver but she has not had any follow-up appointments ever since then. Will have her undergo additional blood work in 3 months time. If she has any worsening liver function studies or any concerns she needs to go back to GI. In addition to this if the patient continues have any evidence of any active sarcoidosis on the 10 mg of prednisone we will consider Remicade as an alternative. With her liver cirrhosis using immunomodulator therapy may be relatively contraindicated. 02/04/2023 the patient is here for a pulmonary follow-up visit. Overall respiratory status seems to be stable. No significant coughing. Her major complaint significant lower extremity edema. She has been on diuresis. However likely with her liver cirrhosis resulting significant lower extremity edema. Will go ahead and increase her diuretic for the next Few days. She may vikas efit from Aldactone although this will have to be discussed further with her GI team. In the meantime we did review her recent CT scan of the chest demonstrating increasing the interval pulmonary nodules in the lungs suggesting of her sarcoidosis is still active. We did try to get her to a low dose on the prednisone of 10 mg which she seems to be tolerating better than previously. Still, the patient likely needs additional immunosuppression. In view of her liver cirrhosis we have to be careful with her potential medication adverse effects. Imuran will be a good option in view of her liver cirrhosis. Still, will monitor her blood work closely to make sure she does not follow up any worsening liver failure. 06/06/2023 the patient is here for a pulm onary follow-up visit. Overall the patient is doing well. I had called her over the phone the last month to increase her Imuran to 2 tablets which is 100 mg daily. And also has been taking prednisone 10 mg daily. The reason for this was because her liver function studies were still elevated suggesting some degree of inflammation and her Gerson level still elevated. The patient seems to be tolerate well the increasing the medication. She does have issues with back pain. Primarily closer to the sacroiliac joint. This is look unlikely to be the area of the liver. The patient does not have any pain over the right upper quadrant. Still she should follow-up with Chip Tate since she has not seen a more than a year. Patient continues to have elevations in the liver function studies. Most likely this is all related to the sarcoid but they need to address the abnormalities as well. Patient also has been taking diuretics. She will continue to do so. Kidney function seems to be okay electrolytes as well. Will have her continue with the Imuran 100 mg daily in the prednisone 10 and will plan to follow-up with blood work in 2 months. If the blood work continues to be elevated suggesting continued inflammation and sarcoid activity will go ahead and increase the Imuran further to 150 mg if that is the case. If the patient does not respond to the immunomodulator therapy then we can consider biologic therapy. [facility] Medical History TACOS positive Lymphadenopathy Pulmonary nodules Sarcoidosis Surgical History Hx of bladder repair surgery Hx of colonoscopy Hx of tubal ligation Family History (Updated 03/22/22 @ 11:51 by KELLY Devlin) Mother Diabetes Brother Diabetes Brother Diabetes Social History Patient Tobacco Use Status: Never used Tobacco Review of Systems Const Unobtainable due to mental status Denies fatigue and Reports weight gain Eyes Denies change in vision ENT Denies change in voice Card Denies chest pain, Reports leg edema and Reports dyspnea on exertion Resp Denies chest congestion, Denies cough, Denies pain on inspiration, Denies pain with cough, Reports dyspnea on exertion and Denies wheezing GI Reports no additional complaints Musc Reports back pain, Reports myalgias, Reports numbness and Reports tingling Skin/Breast Denies rash Neuro Reports numbness and Reports tingling Endo Denies fatigue Aller/Immun Denies wheezing Physical Exam Vital Signs: Last Vital Signs Pulse 78 10/14/23 12:58 Resp 78 H 10/14/23 12:58 Pulse Ox 98 10/14/23 12:58 Oxygen Delivery Method Room Air 10/14/23 12:58 BMI result Body Mass Index 29.3 Const General: alert Neck Neck: Yes normal visual inspection, Yes full ROM and Yes no lymphadenopathy Chest Chest palpation & inspection: normal inspection of the chest Resp Effort & Inspection: normal respiratory effort Auscultation: no rhonchi, no wheezes and diminished lung sounds Cardio Rate: regular rate Rhythm: regular rhythm Heart sounds: S1 normal heart sound present and S2 normal heart sound present GI Palpation (GI): Soft to palpation and nontender Auscultation: normal bowel sounds Skin General skin exam: rashes and/or lesions noted Extrem General: No clubbing, No cyanosis and Yes edema Assessment & Plan Assessment & Plan (1) Sarcoidosis: Code(s): D86.9 - Sarcoidosis, unspecified (2) Pulmonary nodules: Code(s): R91.8 - Other nonspecific abnormal finding of lung field (3) Lower extremity edema: Code(s): R60.0 - Localized edema (4) Cirrhosis: Code(s): K74.60 - Unspecified cirrhosis of liver Qualifiers: Ascites presence: unspecified Hepatic cirrhosis type: unspecified hepatic cirrhosis Qualified Code(s): K74.60 - Unspecified cirrhosis of liver (5) Lymphadenopathy: Code(s): R59.1 - Generalized enlarged lymph nodes (6) TACOS positive: Code(s): R76.8 - Other specified abnormal immunological findings in serum Plan taper prednisone 10mg daily->7.5mg continue Imuran 100 mg daily Additional bloodwork in 6-[address] chest in 6-8 months compression stockings Lasix, daily weight F/U 3-4 months Orders: Orders Basic Metabolic Panel 10/14/23 D86.9 - Sarcoidosis, unspecified CT chest wo IV con 10/14/23 R91.8 - Other nonspecific abnormal finding of lung field Complete Blood Count Auto Diff 01/30/24 D86.9 - Sarcoidosis, unspecified Erythrocyte Sedimentation Rate 10/14/23 D86.9 - Sarcoidosis, unspecified Angiotensin Converting Enzyme 10/14/23 D86.9 - Sarcoidosis, unspecified Liver Panel 10/14/23 D86.9 - Sarcoidosis, unspecified Medications: Refilled compress.stocking,knee,reg,med 15-20 cm 2 ea 0RF R60.0 - Localized edema Coding Level of Care Code Est Pt Level 4 (23053) Diagnoses Sarcoidosis D86.9 Pulmonary nodules R91.8 Lower extremity edema R60.0 Hepatic cirrhosis, unspecified hepatic cirrhosis type, unspecified whether ascites present K74.60 Ascites presence: unspecified Hepatic cirrhosis type: unspecified hepatic cirrhosis Lymphadenopathy R59.1 TACOS positive R76.8 Time Spent (min) 18
[2023-10-14 12:58] VITALS: PULSE 78; RESP 78; O2SAT 98; BMI 29.3
== END 2023-10-14 13:20 | disposition home or self-care (01) ==
PROVIDERS: PCP Family Medicine; Visit Provider Hospitalist
DX: D86.9 Sarcoidosis, unspecified (principal); R91.8 Other nonspecific abnormal finding of lung field; R60.0 Localized edema; K74.60 Unspecified cirrhosis of liver; R59.1 Generalized enlarged lymph nodes; R76.8 Other specified abnormal immunological findings in serum
CPT/HCPCS: 99214

== ENCOUNTER → 2023-10-14 12:30 | Outpatient (BNVA) | payer OTHER, SELFPAY | PROVIDERS: PCP Family Medicine; Visit Provider Hospitalist | DX: D86.9 Sarcoidosis, unspecified (principal); R91.8 Other nonspecific abnormal finding of lung field; R60.0 Localized edema; R59.1 Generalized enlarged lymph nodes; K74.60 Unspecified cirrhosis of liver; R76.8 Other specified abnormal immunological findings in serum | CPT/HCPCS: 99212 ==

== ENCOUNTER 2024-01-16 09:05 | Outpatient (AMB) | payer OTHER, SELFPAY ==
[2024-01-16 09:11] VITALS: BP 128/60; PULSE 72; O2SAT 98; BMI 29.5
--- NOTE | 2024-01-16 09:11 | A.OFFVIS_ITS ---
Vital Signs 01/16/24 09:11 Height 4 ft 11 in Weight 146 lb BMI 29.5 BP 128/60 Blood Pressure Location Rt brachial Position Sitting Pulse 72 Pulse Source Pulse Oximeter Pulse Oximetry (%) 98 Oxygen Delivery Method Room Air Intake Visit Reasons: pulm nodule Irrigator Valve Pipe Required: No Allergies No Known Allergies Allergy (Verified 01/16/24 09:13) HPI Comments Details: The Patient is a 73-year-old woman with a pretty unremarkable past medical history until the last several months. She was noted to have a masslike density in her neck. She did have a CT scan of the neck which was abnormal. Therefore she did undergo a CT scan of the chest and also CT scan of the abdomen and pelvis. She was found to have numerous subcentimeter pulmonary nodules in a bronchovascular distribution and significant lymphadenopathy both in the mediastinum and also the hilum. She did undergo CT-guided biopsy or a image guided biopsy of her neck masslike density. Apparently per report was consistent with granulomas in a diagnosis of sarcoidosis. In the meantime the patient has been describing increasing dyspnea on exertion. She is also demonstrating worsening lower extremity edema. She has also started describing numbness of the lower extremities. It is hard to know have all the symptoms are related to sarcoid or a different etiology. Upon looking at the CT scan of the chest, the report also mentioned that she had evidence of abnormal contour of the liver suggesting liver cirrhosis. Explained to them that this could also be playing a role with her lower extremity edema. It is hard to know for sure if her liver cirrhosis is related to extrapulmonary sarcoidosis or different condition altogether. Will have her undergo blood work and also may need a GI consultation to further evaluate the possibility of cirrhosis. 01/05/2022 the patient is here for a pulmonary follow-up visit. Overall she is feeling better. She did take to smoke on a course of prednisone and she did feel significantly better. She is no longer on the prednisone. She has been using the gabapentin for sleep with good effect. In regarding all the cirrhosis the suspicion is that it may be related to the underlying sarcoidosis. We did refer her to GI and did call her. However she missed the call. She will call t [facility] to make an appointment to be evaluated for the cirrhosis and to see if is related to the sarcoidosis. In the meantime we did review her blood work demonstrating a significantly elevated Gerson level consistent with active sarcoidosis. We also reviewed her pulmonary function studies demonstrating mild restriction with a mild diffusion impairment likely from the underlying parenchymal lung disease. In addition to that her TACOS was elevated. Will go ahead and have her undergo additional testing at this time. 04/19/2022 the patient is here for a pulmonary follow-up visit. The patient still is doing well. Denies any significant shortness of breath or cough. She has been having issues with weight gain specially because the prednisone. Currently she is down to 10 mg of prednisone. She did follow-up with GI and she did have numerous laboratory studies which were all reassuring. In addition to that she is scheduled to undergo an ultrasound of the abdomen in the coming weeks. Will plan to try decrease her prednisone a little bit more and then keep her on anti she has additional blood work. Therefore will bring her down to 7.5 mg of prednisone with hopes that is still controls her symptoms. Will recheck a blood work prior to the next visit. During that next visit will decide when to repeat her CT scan of the chest. the patient has been using her diuretics. She still has some lower extremity edema. She needs compression stockings. I did give her script. she will go ahead and take additional Lasix for the next 3 days. 06/25/2022 the patient is here for pulmonary follow-up visit. Overall she is doing well. The patient continues on the 7.5 mg prednisone daily. She is monitoring her sugars. Her last blood work demonstrated elevations in her total bilirubin and also her Gerson level. Will plan to repeat those results. I am hopeful that the Gerson level now is within normal. Is she still demonstrates active sarcoid activity even on the prednisone will consider an alternative agent such as Remicade to 4 there are stabilize her inflammatory process. The patient has liver disease to the use of immunomodulators will be contraindicated. Her cough is overall better. Still has intermittent coughing denies any significant shortness of breath at rest. She did have her eye exam diet no evidence of any uveitis her patient's report at this time. 11/01/2022 the patient is here for a pulmonary follow-up visit. Overall that she is doing well from a respiratory status. She had been on prednisone 7.5 mg daily. We had done blood work in her Gerson level was increasing. Therefore I did call the patient's daughter and we increased her prednisone to 10 mg daily. She seems to be tolerating that well. The rest of the blood work is reassuring. Her LFTs were improving with the total bilirubin going from 2 to will now 1.7. She is noticing some lower extremity edema. I explained to them that this is probably due to the underlying liver cirrhosis. The patient does not have any evidence of ascites. She was followed by GI and did have an ultrasound of the liver but she has not had any follow-up appointments ever since then. Will have her undergo additional blood work in 3 months time. If she has any worsening liver function studies or any concerns she needs to go back to GI. In addition to this if the patient continues have any evidence of any active sarcoidosis on the 10 mg of prednisone we will consider Remicade as an alternative. With her liver cirrhosis using immunomodulator therapy may be relatively contraindicated. 02/04/2023 the patient is here for a pulmonary follow-up visit. Overall respiratory status seems to be stable. No significant coughing. Her major complaint significant lower extremity edema. She has been on diuresis. However likely with her liver cirrhosis resulting significant lower extremity edema. Will go ahead and increase her diuretic for the next Few days. She may benefit from Aldactone although this will have to be discussed further with her GI team. In the meantime we did review her recent CT scan of the chest demonstrating increasing the interval pulmonary nodules in the lungs suggesting of her sarcoidosis is still active. We did try to get her to a low dose on the prednisone of 10 mg which she seems to be tolerating better than previously. Still, the patient likely needs additional immunosuppression. In view of her liver cirrhosis we have to be careful with her potential medication adverse effects. Imuran will be a good option in view of her liver cirrhosis. Still, will monitor her blood work closely to make sure she does not follow up any worsening liver failure. 06/06/2023 the patient is here for a pulmonary follow-up visit. Overall the patient is doing well. I had called her over the phone the last month to increase her Imuran to 2 tablets which is 100 mg daily. And also has been taking prednisone 10 mg daily. The reason for this was because her liver function studies were still elevated suggesting some degree of inflammation and her Gerson level still elevated. The patient seems to be tolerate well the increasing the medication. She does have issues with back pain. Primarily closer to the sacroiliac joint. This is look unlikely to be the area of the liver. The patient does not have any pain over the right upper quadrant. Still she should follow-up with Chip Tate since she has not seen a more than a year. Patient continues to have elevations in the liver function studies. Most likely this is all related to the sarcoid but they need to address the abnormalities as well. Patient also has been taking diuretics. She will continue to do so. Kidney function seems to be okay electrolytes as well. Will have her continue with the Imuran 100 mg daily in the prednisone 10 and will plan to follow-up with blood work in 2 months. If the blood work continues to be elevated suggesting continued inflammation and sarcoid activity will go ahead and increase the Imuran further to 150 mg if that is the case. If the patient does not respond to the immunomodulator therapy then we can consider biologic therapy. 01/16/2024 the patient is here for a pulmonary follow-up visit. Overall the patient is doing well from a respiratory status. She continues on Imuran 100 mg. She is also on the prednisone. Some clear if she is taking the 5 mg tablets of [address] scans reassuring with decreased nodular densities in interstitial changes. In addition to that her blood work is also reassuring with a normal Gerson level improving liver function studies and stable chemistries and CBC. I will go ahead and decrease her prednisone to 2.[address] she has a easier time to decrease it down to 7.5 mg. She will continue on that dose for now since there stability of disease and we would decrease to quickly. Denies any shortness of breath denies any significant coughing. Her sedimentation rate is indeed elevated. I can not completely associate that with the sarcoid specially since her sarcoid seems to be dormant right now on the medication. Therefore need to consider other etiologies to account for the elevation of the sedimentation rate. PFSH Medical History TACOS positive Lymphadenopathy Pulmonary nodules Sarcoidosis Surgical History Hx of bladder repair surgery Hx of colonoscopy Hx of tubal ligation Family History (Updated 03/22/22 @ 11:51 by KELLY Devlin) Mother Diabetes Brother Diabetes Brother Diabetes Social History Patient Tobacco Use Status: Never used Tobacco Review of Systems Const Unobtainable due to mental status Denies fatigue and Denies weight gain Eyes Denies change in vision ENT Denies change in voice Card Denies chest pain, Reports leg edema and Reports dyspnea on exertion Resp Denies chest congestion, Denies cough, Denies pain on inspiration, Denies pain with cough, Reports dyspnea on exertion and Denies wheezing GI Reports no additional complaints Musc Reports back pain, Reports myalgias, Reports numbness and Reports tingling Skin/Breast Denies rash Neuro Reports numbness and Reports tingling Endo Denies fatigue Aller/Immun Denies wheezing Physical Exam Vital Signs: Last Vital Signs Pulse 72 01/16/24 09:11 BP 128/60 01/16/24 09:11 Pulse Ox 98 01/16/24 09:11 Oxygen Delivery Method Room Air 01/16/24 09:11 BMI result Body Mass Index 29.5 Const General: alert Neck Neck: Yes normal visual inspection, Yes full ROM and Yes no lymphadenopathy Chest Chest palpation & inspection: normal inspection of the chest Resp Effort & Inspection: normal respiratory effort Auscultation: clear to auscultation bilaterally, no rhonchi and no wheezes Cardio Rate: regular rate Rhythm: regular rhythm Heart sounds: S1 normal heart sound present and S2 normal heart sound present GI Palpation (GI): Soft to palpation and nontender Auscultation: normal bowel sounds Skin General skin exam: rashes and/or lesions noted Extrem General: No clubbing, No cyanosis and Yes edema Assessment & Plan Assessment & Plan (1) Sarcoidosis: Code(s): D86.9 - Sarcoidosis, unspecified Category: Medical (2) Pulmonary nodules: Code(s): R91.8 - Other nonspecific abnormal finding of lung field Category: Medical (3) Lower extremity edema: Code(s): R60.0 - Localized edema Category: Medical (4) Cirrhosis: Code(s): K74.60 - Unspecified cirrhosis of liver Category: Medical Qualifiers: Ascites presence: unspecified Hepatic cirrhosis type: unspecified hepatic cirrhosis Qualified Code(s): K74.60 - Unspecified cirrhosis of liver (5) Lymphadenopathy: Code(s): R59.1 - Generalized enlarged lymph nodes Category: Medical (6) TACOS positive: Code(s): R76.8 - Other specified abnormal immunological findings in serum Category: Medical Plan taper prednisone 10mg daily->7.5mg continue Imuran 100 mg daily Additional bloodwork in 3-4 months compression stockings low sodium diet discontinue Lasix F/U 4 months Orders: Orders Complete Blood Count Auto Diff Today D86.9 - Sarcoidosis, unspecified, K74.60 - Unspecified cirrhosis of liver, R91.8 - Other nonspecific abnormal finding of lung field Basic Metabolic Panel Today D86.9 - Sarcoidosis, unspecified, K74.60 - Unspecified cirrhosis of liver, R91.8 - Other nonspecific abnormal finding of lung field Liver Panel Today D86.9 - Sarcoidosis, unspecified, K74.60 - Unspecified cirrhosis of liver, R91.8 - Other nonspecific abnormal finding of lung field Angiotensin Converting Enzyme Today D86.9 - Sarcoidosis, unspecified, K74.60 - Unspecified cirrhosis of liver, R91.8 - Other nonspecific abnormal finding of lung field Erythrocyte Sedimentation Rate Today D86.9 - Sarcoidosis, unspecified, K74.60 - Unspecified cirrhosis of liver, R91.8 - Other nonspecific abnormal finding of lung field Medications: New prednisone 7.5 mg (3 x 2.5 mg) PO DAILY 90 tabs 10RF 30 days Discontinued prednisone Discontinued Reason: Doctor's Order 10 mg (2 x 5 mg) PO DAILY 30 days 60 tabs 6RF Coding Level of Care Code Est Pt Level 4 (00444) Diagnoses Sarcoidosis D86.9 Pulmonary nodules R91.8 Lower extremity edema R60.0 Hepatic cirrhosis, unspecified hepatic cirrhosis type, unspecified whether ascites present K74.60 Ascites presence: unspecified Hepatic cirrhosis type: unspecified hepatic cirrhosis Lymphadenopathy R59.1 TACOS positive R76.8 Time Spent (min) 17
== END 2024-01-16 09:31 | disposition home or self-care (01) ==
PROVIDERS: PCP Family Medicine; Visit Provider Hospitalist
DX: D86.9 Sarcoidosis, unspecified (principal); R91.8 Other nonspecific abnormal finding of lung field; R60.0 Localized edema; K74.60 Unspecified cirrhosis of liver; R59.1 Generalized enlarged lymph nodes; R76.8 Other specified abnormal immunological findings in serum
CPT/HCPCS: 99214

== ENCOUNTER → 2024-01-16 09:05 | Outpatient (BNVA) | payer OTHER, SELFPAY | PROVIDERS: PCP Family Medicine; Visit Provider Hospitalist | DX: D86.9 Sarcoidosis, unspecified (principal); R91.8 Other nonspecific abnormal finding of lung field; R60.0 Localized edema; K74.60 Unspecified cirrhosis of liver; R59.1 Generalized enlarged lymph nodes; R76.8 Other specified abnormal immunological findings in serum | CPT/HCPCS: 99212 ==

== ENCOUNTER 2024-08-15 10:48 | Outpatient (AMB) | payer OTHER, SELFPAY ==
--- NOTE | 2024-08-15 10:50 | MHC.OFFVIS ---
Vital Signs 08/15/24 10:51 Height 4 ft 11 in Weight 149 lb 14.629 oz BMI 30.3 BP 144/70 H Blood Pressure Location Rt brachial Position Sitting Pulse 72 Pulse Source Pulse Oximeter Pulse Oximetry (%) 98 Oxygen Delivery Method Room Air Intake Visit Reasons: Pulmonary Nodule [employer] Required: No Health And Wellness Instructor: Health And Wellness Instructor offered & declined Accompanied by: Self / Same As Patient Allergies No Known Allergies Allergy (Verified 08/15/24 10:56) Medication List - Last Reconciled 08/15/24 by Nohemi Villarreal LPN azathioprine (Imuran) 100 mg (2 x 50 mg) PO DAILY 90 days compress.stocking,knee,reg,med 15-20 cm cyanocobalamin (vitamin B-12) 1,000 mcg IM furosemide (Lasix) 20 mg PO DAILY 14 days gabapentin 300 mg PO BEDTIME PRN prednisone 7.5 mg (3 x 2.5 mg) PO DAILY 30 days HPI Comments Details: The Patient is a 74-year-old woman with a pretty unremarkable past medical history until the last several months. She was noted to have a masslike density in her neck. She did have a CT scan of the neck which was abnormal. Therefore she did undergo a CT scan of the chest and also CT scan of the abdomen and pelvis. She was found to have numerous subcentimeter pulmonary nodules in a bronchovascular distribution and significant lymphadenopathy both in the mediastinum and also the hilum. She did undergo CT-guided biopsy or a image guided biopsy of her neck masslike density. Apparently per report was consistent with granulomas in a diagnosis of sarcoidosis. In the meantime the patient has been describing increasing dyspnea on exertion. She is also demonstrating worsening lower extremity edema. She has also started describing numbness of the lower extremities. It is hard to know have all the symptoms are related to sarcoid or a different etiology. Upon looking at the CT scan of the chest, the report also mentioned that she had evidence of abnormal contour of the liver suggesting liver cirrhosis. Explained to them that this could also be playing a role with her lower extremity edema. It is hard to know for sure if her liver cirrhosis is related to extrapulmonary sarcoidosis or different condition altogether. Will have her undergo blood work and also may need a GI consultation to further evaluate the possibility of cirrhosis. 01/05/2022 the patient is here for a pulmonary follow-up visit. Overall she is feeling better. She did take to smoke on a course of prednisone and she did feel significantly better. She is no longer on the prednisone. She has been using the gabapentin for sleep with good effect. In regarding all the cirrhosis the suspicion is that it may be related to the underlying sarcoidosis. We did refer her to GI and did call her. However she missed the call. She will call them to make an appointment to be evaluated for the cirrhosis and to see if is related to the sarcoidosis. In the meantime we did review her blood work demonstrating a significantly elevated Gerson level consistent with active sarcoidosis. We also reviewed her pulmonary function studies demonstrating mild restriction with a mild diffusion impairment likely from the underlying parenchymal lung disease. In addition to that her TACOS was elevated. Will go ahead and have her undergo additional testing at this time. 04/19/2022 the patient is here for a pulmonary follow-up visit. The patient still is doing well. Denies any significant shortness of breath or cough. She has been having issues with weight gain specially because the prednisone. Currently she is down to 10 mg of prednisone. She did follow-up with GI and she did have numerous laboratory studies which were all reassuring. In addition to that she is scheduled to undergo an ultrasound of the abdomen in the coming weeks. Will plan to try decrease her prednisone a little bit more and then keep her on anti she has additional blood work. Therefore will bring her down to 7.5 mg of prednisone with hopes that is still controls her symptoms. Will recheck a blood work prior to the next visit. During that next visit will decide when to repeat her CT scan of the chest. the patient has been using her diuretics. She still has some lower extremity edema. She needs compression stockings. I did give her script. she will go ahead and take additional Lasix for the next 3 days. 06/25/2022 the patient is here for pulmonary follow-up visit. Overall she is doing well. The patient continues on the 7.5 mg prednisone daily. She is monitoring her sugars. Her last blood work demonstrated elevations in her total bilirubin and also her Gerson level. Will plan to repeat those results. I am hopeful that the Gerson level now is within normal. Is she still demonstrates active sarcoid activity even on the prednisone will consider an alternative agent such as Remicade to 4 there are stabilize her inflammatory process. The patient has liver disease to the use of immunomodulators will be contraindicated. Her cough is overall better. Still has intermittent coughing denies any significant shortness of breath at rest. She did have her eye exam diet no evidence of any uveitis her patient's report at this time. 11/01/2022 the patient is here for a pulmonary follow-up visit. Overall that she is doing well from a respiratory status. She had been on prednisone 7.5 mg daily. We had done blood work in her Gerson level was increasing. Therefore I did call the patient's daughter and we increased her prednisone to 10 mg daily. She seems to be tolerating that well. The rest of the blood work is reassuring. Her LFTs were improving with the total bilirubin going from 2 to will now 1.7. She is noticing some lower extremity edema. I explained to them that this is probably due to the underlying liver cirrhosis. The patient does not have any evidence of ascites. She was followed by GI and did have an ultrasound of the liver but she has not had any follow-up appointments ever since then. Will have her undergo additional blood work in 3 months time. If she has any worsening liver function studies or any concerns she needs to go back to GI. In addition to this if the patient continues have any evidence of any active sarcoidosis on the 10 mg of prednisone we will consider Remicade as an alternative. With her liver cirrhosis using immunomodulator therapy may be relatively contraindicated. 02/04/2023 the patient is here for a pulmonary follow-up visit. Overall respiratory status seems to be stable. No significant coughing. Her major complaint significant lower extremity edema. She has been on diuresis. However likely with her liver cirrhosis resulting significant lower extremity edema. Will go ahead and increase her diuretic for the next Few days. She may benefit from Aldactone although this will have to be discussed further with her GI team. In the meantime we did review her recent CT scan of the chest demonstrating increasing the interval pulmonary nodules in the lungs suggesting of her sarcoidosis is still active. We did try to get her to a low dose on the prednisone of 10 mg which she seems to be tolerating better than previously. Still, the patient likely needs additional immunosuppression. In view of her liver cirrhosis we have to be careful with her potential medication adverse effects. Imuran will be a good option in view of her liver cirrhosis. Still, will monitor her blood work closely to make sure she does not follow up any worsening liver failure. 06/06/2023 the patient is here for a pulmonary follow-up visit. Overall the patient is doing well. I had called her over the phone the last month to increase her Imuran to 2 tablets which is 100 mg daily. And also has been taking prednisone 10 mg daily. The reason for this was because her liver function studies were still elevated suggesting some degree of inflammation and her Gerson level still elevated. The patient seems to be tolerate well the increasing the medication. She does have issues with back pain. Primarily closer to the sacroiliac joint. This is look unlikely to be the area of the liver. The patient does not have any pain over the right upper quadrant. Still she should follow-up with Chip Tate since she has not seen a more than a year. Patient continues to have elevations in the liver function studies. Most likely this is all related to the sarcoid but they need to address the abnormalities as well. Patient also has been taking diuretics. She will continue to do so. Kidney function seems to be okay electrolytes as well. Will have her continue with the Imuran 100 mg daily in the prednisone 10 and will plan to follow-up with blood work in 2 months. If the blood work continues to be elevated suggesting continued inflammation and sarcoid activity will go ahead and increase the Imuran further to 150 mg if that is the case. If the patient does not respond to the immunomodulator therapy then we can consider biologic therapy. 01/16/2024 the patient is here for a pulmonary follow-up visit. Overall the patient is doing well from a respiratory status. She continues on Imuran 100 mg. She is also on the prednisone. Some clear if she is taking the 5 mg tablets of [address] scans reassuring with decreased nodular densities in interstitial changes. In addition to that her blood work is also reassuring with a normal Gerson level improving liver function studies and stable chemistries and CBC. I will go ahead and decrease her prednisone to 2.[address] she has a easier time to decrease it down to 7.5 mg. She will continue on that dose for now since there stability of disease and we would decrease to quickly. Denies any shortness of breath denies any significant coughing. Her sedimentation rate is indeed elevated. I can not completely associate that with the sarcoid specially since her sarcoid seems to be dormant right now on the medication. Therefore need to consider other etiologies to account for the elevation of the sedimentation rate. 08/15/2024 the patient is here for a pulmonary follow-up visit. Overall she is doing okay from a respiratory status. Denies any cough shortness of breath or wheezing. She apparently has not been taking the Imuran. Not sure how long it has been the case. She has been taking 10 mg of prednisone instead of 7.5. Her imaging study last was stable. Her blood work all normalized which is reassuring. Now though she developed a rash in her lower extremities. It is not clear if this is sarcoid if his infection. Indeed may be sarcoid. Will go ahead and treat her with some doxycycline also give her an antifungal cream to try on it. She could also decrease the prednisone in case she is having a reaction. Therefore she will take 5 mg of prednisone. If the rash not better she is going to have to see a fiberglass autobody repairer potentially get a biopsy and see if this is sarcoid in the meantime will try to decrease her prednisone since the patient appears to be a bit more stable from the sarcoid standpoint based on her blood work and her imaging studies. [facility] Medical History (Updated 08/15/24 @ 20:16 by Jv Gottlieb MD) Rash TACOS positive Lymphadenopathy Pulmonary nodules Sarcoidosis Surgical History Hx of bladder repair surgery Hx of tubal ligation Hx of colonoscopy Family History (Updated 03/22/22 @ 11:51 by KELLY Devlin) Mother Diabetes Brother Diabetes Brother Diabetes Social History Patient Tobacco Use Status: Never used Tobacco Review of Systems Const Denies fatigue and Denies weight gain Eyes Denies change in vision ENT Denies change in voice Card Denies chest pain, Reports leg edema and Reports dyspnea on exertion Resp Denies chest congestion, Denies cough, Denies pain on inspiration, Denies pain with cough, Reports dyspnea on exertion and Denies wheezing GI Reports no additional complaints Musc Reports back pain, Reports myalgias, Reports numbness and Reports tingling Skin/Breast Reports rash Neuro Reports numbness and Reports tingling Endo Denies fatigue Aller/Immun Denies wheezing Physical Exam Vital Signs: Last Vital Signs Pulse 72 08/15/24 10:51 BP 144/70 H 12/11/24 10:51 Pulse Ox 98 08/15/24 10:51 Oxygen Delivery Method Room Air 08/15/24 10:51 BMI result Body Mass Index 30.3 Const General: alert Neck Neck: Yes normal visual inspection, Yes full ROM and Yes no lymphadenopathy Chest Chest palpation & inspection: normal inspection of the chest Resp Effort & Inspection: normal respiratory effort Auscultation: clear to auscultation bilaterally, no rhonchi and no wheezes Cardio Rate: regular rate Rhythm: regular rhythm Heart sounds: S1 normal heart sound present and S2 normal heart sound present GI Palpation (GI): Soft to palpation and nontender Auscultation: normal bowel sounds Skin General skin exam: rashes and/or lesions noted Lesions: lesion noted (ankles) Extrem General: No clubbing, No cyanosis and Yes edema Assessment & Plan Assessment & Plan (1) Sarcoidosis: Code(s): D86.9 - Sarcoidosis, unspecified Category: Medical (2) Pulmonary nodules: Code(s): R91.8 - Other nonspecific abnormal finding of lung field Category: Medical (3) Cirrhosis: Code(s): K74.60 - Unspecified cirrhosis of liver Category: Medical Qualifiers: Ascites presence: unspecified Hepatic cirrhosis type: unspecified hepatic cirrhosis Qualified Code(s): K74.60 - Unspecified cirrhosis of liver (4) Lymphadenopathy: Code(s): R59.1 - Generalized enlarged lymph nodes Category: Medical (5) TACOS positive: Code(s): R76.8 - Other specified abnormal immunological findings in serum Category: Medical (6) Rash: Code(s): R21 - Rash and other nonspecific skin eruption Category: Medical Plan decrease prednisone 5mg not taking Imuran 100 mg daily antifungal cream doxycycline x 10 days Additional bloodwork in 2-3 months Consider dermatology referral if rash is persistent low sodium diet discontinue Lasix F/U 4 months Orders: Orders Basic Metabolic Panel Today D86.9 - Sarcoidosis, unspecified Liver Panel Today D86.9 - Sarcoidosis, unspecified Angiotensin Converting Enzyme Today D86.9 - Sarcoidosis, unspecified Complete Blood Count Auto Diff Today D86.9 - Sarcoidosis, unspecified Medications: New doxycycline monohydrate 100 mg PO BID 28 tabs 0RF 14 days prednisone 5 mg PO DAILY 90 tabs 3RF 90 days clotrimazole 1% 1 appl topical BID 30 grams 1RF 4 weeks Coding Level of Care Code Est Pt Level 4 (19890) Complex EM visit Add On G2211 Diagnoses Sarcoidosis D86.9 Pulmonary nodules R91.8 Hepatic cirrhosis, unspecified hepatic cirrhosis type, unspecified whether ascites present K74.60 Ascites presence: unspecified Hepatic cirrhosis type: unspecified hepatic cirrhosis Lymphadenopathy R59.1 TACOS positive R76.8 Rash R21 Time Spent (min) 17
[2024-08-15 10:51] VITALS: BP 144/70; PULSE 72; O2SAT 98; BMI 30.3
== END 2024-08-15 11:14 | disposition home or self-care (01) ==
PROVIDERS: PCP Family Medicine; Visit Provider Hospitalist
DX: D86.9 Sarcoidosis, unspecified (principal); R91.8 Other nonspecific abnormal finding of lung field; K74.60 Unspecified cirrhosis of liver; R59.1 Generalized enlarged lymph nodes; R76.8 Other specified abnormal immunological findings in serum; R21 Rash and other nonspecific skin eruption
CPT/HCPCS: 99214; G2211

== ENCOUNTER → 2024-08-15 10:48 | Outpatient (BNVA) | payer OTHER, SELFPAY | PROVIDERS: PCP Family Medicine; Visit Provider Hospitalist | DX: R91.8 Other nonspecific abnormal finding of lung field (principal); R59.1 Generalized enlarged lymph nodes; R76.8 Other specified abnormal immunological findings in serum; R21 Rash and other nonspecific skin eruption; D86.9 Sarcoidosis, unspecified; K74.60 Unspecified cirrhosis of liver | CPT/HCPCS: 99212 ==

== ENCOUNTER 2024-12-20 10:50 | Outpatient (AMB) | payer OTHER, SELFPAY ==
[2024-12-20 10:52] VITALS: BP 140/76; PULSE 66; O2SAT 99; BMI 30.3
--- NOTE | 2024-12-20 10:52 | MHC.OFFVIS ---
Vital Signs 12/20/24 10:52 Height 4 ft 11 in Weight 149 lb 14.629 oz BMI 30.3 BP 140/76 H Blood Pressure Location Rt brachial Position Sitting Pulse 66 Pulse Source Pulse Oximeter Pulse Oximetry (%) 99 Oxygen Delivery Method Room Air Intake Visit Reasons: Pulmonary Nodule Allergies No Known Allergies Allergy (Verified 12/20/24 10:55) HPI Comments Details: The Patient is a 74-year-old woman with a pretty unremarkable past medical history until the last several months. She was noted to have a masslike density in her neck. She did have a CT scan of the neck which was abnormal. Therefore she did undergo a CT scan of the chest and also CT scan of the abdomen and pelvis. She was found to have numerous subcentimeter pulmonary nodules in a bronchovascular distribution and significant lymphadenopathy both in the mediastinum and also the hilum. She did undergo CT-guided biopsy or a image guided biopsy of her neck masslike density. Apparently per report was consistent with granulomas in a diagnosis of sarcoidosis. In the meantime the patient has been describing increasing dyspnea on exertion. She is also demonstrating worsening lower extremity edema. She has also started describing numbness of the lower extremities. It is hard to know have all the symptoms are related to sarcoid or a different etiology. Upon looking at the CT scan of the chest, the report also mentioned that she had evidence of abnormal contour of the liver suggesting liver cirrhosis. Explained to them that this could also be playing a role with her lower extremity edema. It is hard to know for sure if her liver cirrhosis is related to extrapulmonary sarcoidosis or different condition altogether. Will have her undergo blood work and also may need a GI consultation to further evaluate the possibility of cirrhosis. 01/05/2022 the patient is here for a pulmonary follow-up visit. Overall she is feeling better. She did take to smoke on a course of prednisone and she did feel significantly better. She is no longer on the prednisone. She has been using the gabapentin for sleep with good effect. In regarding all the cirrhosis the suspicion is that it may be related to the underlying sarcoidosis. We did refer her to GI and did call her. However she missed the call. She will call them to make an appointment to be evaluated for the cirrhosis and to see if is related to the sarcoidosis. In the meantime we did review her blood work demonstrating a significantly elevated Gerson level consistent with active sarcoidosis. We also reviewed her pulmonary function studies demonstrating mild restriction with a mild diffusion impairment likely from the underlying parenchymal lung disease. In addition to that her TACOS was elevated. Will go ahead and have her undergo additional testing at this time. 04/19/2022 the patient is here for a pulmonary follow-up visit. The patient still is doing well. Denies any significant shortness of breath or cough. She has been having issues with weight gain specially because the prednisone. Currently she is down to 10 mg of prednisone. She did follow-up with GI and she did have numerous laboratory studies which were all reassuring. In addition to that she is scheduled to undergo an ultrasound of the abdomen in the coming weeks. Will plan to try decrease her prednisone a little bit more and then keep her on anti she has additional blood work. Therefore will bring her down to 7.5 mg of prednisone with hopes that is still controls her symptoms. Will recheck a blood work prior to the next visit. During that next visit will decide when to repeat her CT scan of the chest. the patient has been using her diuretics. She still has some lower extremity edema. She needs compression stockings. I did give her script. she will go ahead and take additional Lasix for the next 3 days. 06/25/2022 the patient is here for pulmonary follow-up visit. Overall she is doing well. The patient continues on the 7.5 mg prednisone daily. She is monitoring her sugars. Her last blood work demonstrated elevations in her total bilirubin and also her Gerson level. Will plan to repeat those results. I am hopeful that the Gerson level now is within normal. Is she still demonstrates active sarcoid activity even on the prednisone will consider an alternative agent such as Remicade to 4 there are stabilize her inflammatory process. The patient has liver disease to the use of immunomodulators will be contraindicated. Her cough is overall better. Still has intermittent coughing denies any significant shortness of breath at rest. She did have her eye exam diet no evidence of any uveitis her patient's report at this time. 11/01/2022 the patient is here for a pulmonary follow-up visit. Overall that she is doing well from a respiratory status. She had been on prednisone 7.5 mg daily. We had done blood work in her Gerson level was increasing. Therefore I did call the patient's daughter and we increased her prednisone to 10 mg daily. She seems to be tolerating that well. The rest of the blood work is reassuring. Her LFTs were improving with the total bilirubin going from 2 to will now 1.7. She is noticing some lower extremity edema. I explained to them that this is probably due to the underlying liver cirrhosis. The patient does not have any evidence of ascites. She was followed by GI and did have an ultrasound of the liver but she has not had any follow-up appointments ever since then. Will have her undergo additional blood work in 3 months time. If she has any worsening liver function studies or any concerns she needs to go back to GI. In addition to this if the patient continues have any evidence of any active sarcoidosis on the 10 mg of prednisone we will consider Remicade as an alternative. With her liver cirrhosis using immunomodulator therapy may be relatively contraindicated. 02/04/2023 the patient is here for a pulmonary follow-up visit. Overall respiratory status seems to be stable. No significant coughing. Her major complaint significant lower extremity edema. She has been on diuresis. However likely with her liver cirrhosis resulting significant lower extremity edema. Will go ahead and increase her diuretic for the next Few days. She may benefit from Aldactone although this will have to be discussed further with her GI team. In the meantime we did review her recent CT scan of the chest demonstrating increasing the interval pulmonary nodules in the lungs suggesting of her sarcoidosis is still active. We did try to get her to a low dose on the prednisone of 10 mg which she seems to be tolerating better than previously. Still, the patient likely needs additional immunosuppression. In view of her liver cirrhosis we have to be careful with her potential medication adverse effects. Imuran will be a good option in view of her liver cirrhosis. Still, will monitor her blood work closely to make sure she does not follow up any worsening liver failure. 06/06/2023 the patient is here for a pulmonary follow-up visit. Overall the patient is doing well. I had called her over the phone the last month to increase her Imuran to 2 tablets which is 100 mg daily. And also has been taking prednisone 10 mg daily. The reason for this was because her liver function studies were still elevated suggesting some degree of inflammation and her Gerson level still elevated. The patient seems to be tolerate well the increasing the medication. She does have issues with back pain. Primarily closer to the sacroiliac joint. This is look unlikely to be the area of the liver. The patient does not have any pain over the right upper quadrant. Still she should follow-up with Chip Tate since she has not seen a more than a year. Patient continues to have elevations in the liver function studies. Most likely this is all related to the sarcoid but they need to address the abnormalities as well. Patient also has been taking diuretics. She will continue to do so. Kidney function seems to be okay electrolytes as well. Will have her continue with the Imuran 100 mg daily in the prednisone 10 and will plan to follow-up with blood work in 2 months. If the blood work continues to be elevated suggesting continued inflammation and sarcoid activity will go ahead and increase the Imuran further to 150 mg if that is the case. If the patient does not respond to the immunomodulator therapy then we can consider biologic therapy. 01/16/2024 the patient is here for a pulmonary follow-up visit. Overall the patient is doing well from a respiratory status. She continues on Imuran 100 mg. She is also on the prednisone. Some clear if she is taking the 5 mg tablets of [address] scans reassuring with decreased nodular densities in interstitial changes. In addition to that her blood work is also reassuring with a normal Gerson level improving liver function studies and stable chemistries and CBC. I will go ahead and decrease her prednisone to 2.[address] she has a easier time to decrease it down to 7.5 mg. She will continue on that dose for now since there stability of disease and we would decrease to quickly. Denies any shortness of breath denies any significant coughing. Her sedimentation rate is indeed elevated. I can not completely associate that with the sarcoid specially since her sarcoid seems to be dormant right now on the medication. Therefore need to consider other etiologies to account for the elevation of the sedimentation rate. 08/15/2024 the patient is here for a pulmonary follow-up visit. Overall she is doing okay from a respiratory status. Denies any cough shortness of breath or wheezing. She apparently has not been taking the Imuran. Not sure how long it has been the case. She has been taking 10 mg of prednisone instead of 7.5. Her imaging study last was stable. Her blood work all normalized which is reassuring. Now though she developed a rash in her lower extremities. It is not clear if this is sarcoid if his infection. Indeed may be sarcoid. Will go ahead and treat her with some doxycycline also give her an antifungal cream to try on it. She could also decrease the prednisone in case she is having a reaction. Therefore she will take 5 mg of prednisone. If the rash not better she is going to have to see a hammerer helper potentially get a biopsy and see if this is sarcoid in the meantime will try to decrease her prednisone since the patient appears to be a bit more stable from the sarcoid standpoint based on her blood work and her imaging studies. FOR[facility], [facility] Medical History (Updated 08/15/24 @ 20:16 by Jv Gottlieb MD) Rash TACOS positive Lymphadenopathy Pulmonary nodules Sarcoidosis Surgical History Hx of bladder repair surgery Hx of tubal ligation Hx of colonoscopy Family History (Updated 03/22/22 @ 11:51 by KELLY Devlin) Mother Diabetes Brother Diabetes Brother Diabetes Social History Patient Tobacco Use Status: Never used Tobacco Review of Systems Const Denies fatigue and Denies weight gain Eyes Denies change in vision ENT Denies change in voice Card Denies chest pain, Reports leg edema and Reports dyspnea on exertion Resp Denies chest congestion, Denies cough, Denies pain on inspiration, Denies pain with cough, Reports dyspnea on exertion and Denies wheezing GI Reports no additional complaints Musc Reports back pain, Reports myalgias, Reports numbness and Reports tingling Skin/Breast Reports rash Neuro Reports numbness and Reports tingling Endo Denies fatigue Aller/Immun Denies wheezing Physical Exam Vital Signs: Last Vital Signs Pulse 66 12/20/24 10:52 BP 140/76 H 12/20/24 10:52 Pulse Ox 99 12/20/24 10:52 Oxygen Delivery Method Room Air 12/20/24 10:52 BMI result Body Mass Index 30.3 Const General: alert Neck Neck: Yes normal visual inspection, Yes full ROM and Yes no lymphadenopathy Chest Chest palpation & inspection: normal inspection of the chest Resp Effort & Inspection: normal respiratory effort Auscultation: clear to auscultation bilaterally, no rhonchi and no wheezes Cardio Rate: regular rate Rhythm: regular rhythm Heart sounds: S1 normal heart sound present and S2 normal heart sound present GI Palpation (GI): Soft to palpation and nontender Auscultation: normal bowel sounds Skin General skin exam: rashes and/or lesions noted Lesions: lesion noted (ankles) Extrem General: No clubbing, No cyanosis and Yes edema Assessment & Plan Assessment & Plan (1) Sarcoidosis: Code(s): D86.9 - Sarcoidosis, unspecified Category: Medical (2) Pulmonary nodules: Code(s): R91.8 - Other nonspecific abnormal finding of lung field Category: Medical (3) Cirrhosis: Code(s): K74.60 - Unspecified cirrhosis of liver Category: Medical Qualifiers: Ascites presence: unspecified Hepatic cirrhosis type: unspecified hepatic cirrhosis Qualified Code(s): K74.60 - Unspecified cirrhosis of liver (4) Lymphadenopathy: Code(s): R59.1 - Generalized enlarged lymph nodes Category: Medical (5) TACOS positive: Code(s): R76.8 - Other specified abnormal immunological findings in serum Category: Medical (6) Rash: Code(s): R21 - Rash and other nonspecific skin eruption Category: Medical Plan decrease prednisone 5mg every other day not taking Imuran Bloodwork prior to next visit Dermatology referral for rash low sodium diet Lasix 40mg daily x 3 days then 20mg daily repeat Liver US in view of worsening LE edema CT chest will need to be rescheduled F/U 4 months Orders: Orders US abdomen comp w elastography Today K74.60 - Unspecified cirrhosis of liver Complete Blood Count Auto Diff 3 Months D86.9 - Sarcoidosis, unspecified, K74.60 - Unspecified cirrhosis of liver Basic Metabolic Panel 3 Months D86.9 - Sarcoidosis, unspecified, K74.60 - Unspecified cirrhosis of liver Angiotensin Converting Enzyme 3 Months D86.9 - Sarcoidosis, unspecified, K74.60 - Unspecified cirrhosis of liver Liver Panel 3 Months D86.9 - Sarcoidosis, unspecified, K74.60 - Unspecified cirrhosis of liver Prothrombin Time INR 3 Months D86.9 - Sarcoidosis, unspecified, K74.60 - Unspecified cirrhosis of liver Referrals Dermatology Referral D86.9 - Sarcoidosis, unspecified, R21 - Rash and other nonspecific skin eruption Medications: New furosemide (Lasix) 20 mg PO DAILY 14 days PRN 7 tabs 0RF edema furosemide (Lasix) 20 mg PO DAILY 30 days 30 tabs 6RF Coding Level of Care Code Est Pt Level 4 (62766) Complex EM visit Add On G2211 Diagnoses Sarcoidosis D86.9 Pulmonary nodules R91.8 Hepatic cirrhosis, unspecified hepatic cirrhosis type, unspecified whether ascites present K74.60 Ascites presence: unspecified Hepatic cirrhosis type: unspecified hepatic cirrhosis Lymphadenopathy R59.1 TACOS positive R76.8 Rash R21 Time Spent (min) 17
--- OUTSIDE RECORDS SUMMARY | 2024-12-20 13:10 | XMS_ITS | Data Portability ---
Author Organization [facility], , [facility] Address [address] [place] [address] Assessment No assessment recorded. Plan of Treatment Reminders Order Date Submit Date Provider Last Modified By Organization Details Last Modified Time Details Appointments None record ed. Lab None record ed. Referral None record ed. Procedures None record ed. Surgeries None record ed. Imaging None record ed. Medication Orders None record ed. Patient TargetsNo targets recorded. Patient Instructions Encounter Date Encounter Id Patient Instructions Last Modified By Organization Details Last Modified Time 07/13/2016 [id number] RX given for glasses-lens options discussed including bifocal or separate reading and distance Discussed cataracts-not visually significant at this time. [email or web address] Not available 07/13/2016 11:31:19 07/19/2017 [id number] Glasses Rx was given. Monitor cataract OU. Monitor PES OD and OS. Not available 07/19/2017 11:07:37 09/19/2018 [id number] Glasses Rx was given. Monitor cataract OU. PES OD and OS with increased IOP 21/21 at this visit. ONH Pictures taken. RTC for IOP recheck and VF OCT tests in a few months or sooner if any other eye signs. Not available 09/19/2018 12:01:48 10/30/2019 [id number] Glasses Rx was given. Monitor cataract OU. PES OD and OS with increased IOP 21/21 at this visit. ONH Pictures taken. RTC for VF OCT tests in a few months or sooner if any other eye signs. Not available 10/30/2019 13:36:22 11/14/2019 [id number] PES OD and OS with increased IOP 20/20 at today's visit. VF not reliable OCT test baseline. RTC in 6 months repeat VF and OCT or sooner if any other eye signs. Not available 11/14/2019 17:34:09 Reason for Referral None Reported. Problems Name Problem SNOMED Code Status Onset Date Resolution Date Notes Provider Name and Address Organization Details Recorded Time Combined form of senile cataract 25020903 Active 2015 Dominik Bebo, OD [address] [place] [address], [phone] , [facility] 6 11:31:30 Hip stiff 314622760 Completed 200007/25/2013 Not Available [facility] 3 02:04:28 Presbyopia 43375812 Active 2002 Not Available [facility] 3 03:04:45 Ureteric stone 43738534 Active 2000 Not Available [facility] 3 03:04:45 Palpitatio ns 31068613 Active 2004 Not Available [facility] 3 03:04:45 Shoulder pain 00960150 Completed 200307/25/2013 Not Available [facility] 3 02:01:02 Myopia 21703205 Active 2008 Not Available [facility] 3 03:04:45 Astigmatis m 68809115 Active 2008 Not Available [facility] 3 03:04:45 Skin sensation disturbanc e 59476934 Completed 200407/25/2013 Not Available [facility] 3 02:03:10 Neck pain 74481721 Completed 200107/25/2013 Not Available [facility] 3 02:00:36 Hip pain 97506448 Completed 200007/25/2013 Not Available [facility] 3 02:01:32 Disorder of skin and/or subcutaneo us tissue 45826656 Completed 200507/25/2013 Not Available [facility] 3 02:03:55 Disorder of sacrum 58687680 Active 2000 Not Available [facility] 3 03:04:45 Dizziness 995904492 Completed 200307/25/2013 Not Available [facility] 3 02:02:09 Major depression , melancholi c type 165920244 Active 2004 Not Available [facility] 3 03:04:45 Neoplasm of uncertain behavior of skin 98885137 Completed 200507/25/2013 Not Available [facility] 3 02:01:52 Common cold 08541201 Completed 200107/25/2013 Not Available [facility] 3 02:00:29 Joint pain 02640676 Active 2004 Not Available [facility] 3 03:04:45 Sprain of shoulder and upper arm Completed 200307/25/2013 Not Available [facility] 3 02:03:37 Senile osteoporos is 78539074 Active 2004 Not Available [facility] 3 03:04:45 Inflamed seborrheic keratosis 097905310 Completed 200507/25/2013 Not Available [facility] 3 02:03:38 Menopausal symptom 36755391 Completed 200407/25/2013 Not Available [facility] 3 02:01:29 Low back pain 303639953 Active 2000 Not Available [facility] 3 03:04:45 Backache 767774216 Completed 200107/25/2013 Not Available [facility] 3 02:01:13 Malaise and fatigue 269963042 Completed 200307/25/2013 Not Available [facility] 3 02:00:19 Blood in urine 91902820 Active 2000 Not Available [facility] 3 03:04:45 Problem Notes None recorded. Procedures Surgical History Date Name Laterality Status Provider Name and Address Organization Details Recorded Time 0 Pachymetry completed Angeline Tan OD [address] [place] [address], [phone], [facility] 10/30/2019 11:00:07 0 Fundus Photography completed Angeline Tan OD [address] [place] [address], [phone], [facility] 10/30/2019 10:45:05 0 Refraction completed Angeline Tan, OD [address] [place], [address], [facility] 10/30/2019 10:45:05 9 Fundus Photography completed Angeline Tan, OD [address] [place], [address], [facility] 09/19/2018 11:44:14 9 Refraction completed Angeline Tan, OD [address] [place], [address], [facility] 09/19/2018 11:01:43 7 Refraction completed Chandra Paul [facility] 07/19/2017 10:24:19 Imaging Results None recorded. Procedure Notes None recorded. Medical Equipment None Reported. Allergies No known drug allergies Medications Name Sig Start Date Stop Date Status Note LastModified by Organization Details LastModified Time cetirizine 10 mg tablet TAKE 1 TABLET BY MOUTH EVERY DAY active Not Available Not Available No t Available sulfamethox azole 800 mg-trimetho prim 160 mg tablet 07/19 completed Not Available Not Available Not Available cyanocobala min (vit B-12) 1,000 mcg/mL injection solution INJECT 1 ML (1000 MCG) INTRAMUSC ULARLY ONCE A MONTH active Not Available Not Available No t Available mupirocin 2 % topical ointment APPLY TO AFFECTED AREA 3 TIMES A DAY FOR 5 DAYS active Not Available Not Available No t Available GaviLyte-G 236 gram-22.74 gram-6.74 gram-5.86 gram oral solution USE DIRECTED active Not Available Not Available No t Available Vitals None Recorded Social History None recorded. Functional Status None recorded. Mental Status None recorded. Family History Nothing Reported. Medical History No medical history recorded. Gynecological HistoryNo gynecological history recorded. Obstetrics History GPAL:G 0 P 0 0 0 0 Past Encounters Encounter ID Performer Location Encounter Start Date Encounter Closed Date Diagnosis/Indication Diagnosis SNOMED-CT Code Diagnosis ICD10 Code Diagnosis Note [id number] Physical Therapy, [address] [address] 12/29/2000 15:00:00 09/25/2008 02:02:29 [id number] Physical Therapy, [address] [address] 01/12/2001 17:30:00 09/25/2008 02:02:29 [id number] Physical Therapy, [facility] [address] [place] [address] 01/03/2001 08:30:00 09/25/2008 02:02:29 [id number] FP, [facility], OFFICE [address] [place] [address] 03/07/2001 08:15:00 09/25/2008 02:02:29 [id number] Radiology , [facility] [address] [place] [address] 08/07/2001 09:00:00 09/25/2008 02:02:29 [id number] , [facility], OFFICE [address] [place] [address] 10/24/2001 17:15:00 09/25/2008 02:02:29 [id number] Radiology , [facility] [address] [place] [address] 11/09/2001 16:00:00 09/25/2008 02:02:29 [id number] , [facility], [address]ICE [address] [place] [address] 11/09/2001 16:00:00 09/25/2008 02:02:29 [id number] , [facility], [address]ICE [address] [place] [address] 10/01/2002 15:06:53 09/25/2008 02:02:29 [id number] Optical, [facility] [address] [place] [address] 10/23/2002 16:40:45 09/25/2008 02:02:29 [id number] Eye Care, [facility] [address] [place] [address] 10/23/2002 15:05:51 09/25/2008 02:02:29 [id number] FP, [facility], OFFICE [address] [place] [address] 02/06/2003 15:30:07 09/25/2008 02:02:29 [id number] FP, [facility], OFFICE [address] [place] [address] 03/19/2003 14:53:21 09/25/2008 02:02:29 [id number] FP, [facility], OFFICE [address] [place] [address] 04/02/2003 12:40:20 09/25/2008 02:02:29 [id number] [facility], [place]ICE [address] [place] [address] 04/04/2003 13:10:03 09/25/2008 02:02:29 [id number] [facility], OFFICE [address] [place] [address] 09/24/2003 13:44:38 09/25/2003 08:46:55 [id number] Physical Therapy, [facility] [place] [address] 09/30/2003 13:36:18 09/30/2003 13:37:11 [id number] Physical Therapy, [facility] [place] [address] 10/02/2003 16:17:35 10/02/2003 16:59:26 [id number] LAB - [facility] [place] [address] 02/25/2004 12:36:30 02/25/2004 12:50:56 [id number] [facility], OFFICE [address] [place] [address] 02/25/2004 09:45:12 02/26/2004 08:35:43 [id number] [facility], OFFICE [address] [place] [address] 08/14/2004 14:54:26 08/18/2004 08:50:52 [id number] Physical Therapy, [facility] [place] [address] 12/08/2004 09:51:07 12/08/2004 09:58:57 [id number] Physical Therapy, [facility] [place] [address] 12/10/2004 10:27:36 12/10/2004 12:16:12 [id number] Physical Therapy, [facility] [place] [address] 12/15/2004 09:51:17 12/15/2004 11:50:02 [id number] Physical Therapy, [facility] [place] [address] 12/22/2004 10:43:42 12/22/2004 12:50:12 [id number] Physical Therapy, [facility] [place] [address] 12/24/2004 09:35:58 12/24/2004 10:16:35 [id number] Physical Therapy, [facility] [address] [place] Chris02[address] 1 12/29/2004 10:00:40 12/29/2004 10:38:13 [id number] Physical Therapy, [facility] [place] Crzu02-[address] 1 12/31/2004 10:23:34 12/31/2004 11:23:35 [id number] Physical Therapy, [facility] [place] Cruz02-[address] 1 01/05/2005 08:43:05 01/05/2005 09:41:07 [id number] Physical Therapy, [facility] [place] Cruz02[address] 1 01/08/2005 09:41:29 01/11/2005 10:02:04 [id number] Physical Therapy, [facility] [place] Cruz02-[address] 1 01/12/2005 09:21:14 01/12/2005 10:58:56 [id number] Physical Therapy, [facility] [place] Cruz02-[address] 1 01/15/2005 09:30:18 01/15/2005 10:25:20 [id number] Physical Therapy, [facility] [place] Cruz02-[address] 1 01/22/2005 09:27:10 01/22/2005 10:34:03 [id number] Physical Therapy, [facility] [place] Cruz02-[address] 1 01/28/2005 08:56:59 01/28/2005 10:25:01 [id number] Physical Therapy, [facility] [place] [address] 02/04/2005 10:38:57 02/04/2005 10:39:24 [id number] Physical Therapy, [facility] [place] [address] 02/08/2005 09:31:12 02/08/2005 12:52:10 [id number] LAB - [facility] [place] [address] 03/11/2005 09:39:38 03/11/2005 09:40:00 [id number] [facility], [address]ICE [address] [place] [address] 03/11/2005 09:09:08 03/12/2005 09:13:17 [id number] [facility], [address] [place] [address] 04/02/2005 10:48:43 04/05/2005 11:01:03 [id number] LAB - [facility] [address] [place] [address] 04/06/2005 07:45:05 04/06/2005 09:27:59 [id number] Radiology , [facility] [address] [place] [address] 04/27/2005 10:13:14 04/27/2005 10:39:55 [id number] Radiology , [facility] [address] [place] [address] 04/27/2005 10:48:52 04/27/2005 11:34:48 [id number] [facility], OFFICE [address] [place] [address] 06/02/2005 09:08:33 06/03/2005 07:48:39 [id number] [facility], OFFICE [address] [place] [address] 05/31/2005 09:42:36 06/07/2005 08:24:28 [id number] [facility] OFFICE [address] [place] [address] 08/17/2005 14:32:43 08/18/2005 09:36:26 [id number] [facility] OFFICE [address] [place] [address] 04/05/2006 13:57:22 04/05/2006 16:09:47 [id number] LAB - [facility] [place] [address] 04/13/2006 10:41:46 04/13/2006 10:41:53 [id number] [facility] , [address] [place] [address] 05/12/2006 13:26:55 05/12/2006 16:47:56 [id number] FP [facility], OFFICE [address] [place] [address] 1 05/30/2006 09:28:18 05/31/2006 12:32:02 [id number] [facility], OFF[address] [place] [address] 1 06/09/2006 11:02:26 06/13/2006 08:25:59 [id number] [facility], OFFICE [address] [place] [address] 09/01/2006 10:00:18 09/01/2006 14:25:08 [id number] Optical, [address] [address] 04/15/2009 11:24:22 04/16/2009 12:06:59 [id number] Eye Care, [address] [address] 04/15/2009 10:10:16 04/16/2009 12:32:04 [id number] Eye Care, [address] [address] 04/15/2009 00:00:00 07/03/2009 02:00:52 [id number] Dominik Lagunas, OD Eye Care, [address] [address] 07/13/2016 09:41:32 07/13/2016 11:36:04 Presbyopia 41885276 H52.4 Hypermetropia 12597718 H 52.03 Combined f orm of senile cataract 42431207 H25.813 cataracts- not visually significan t [id number] Angeline Tan, OD Eye Care, [address] [address] 07/19/2017 10:01:33 07/19/2017 11:08:06 Presbyopia 18207115 H52.4 Hypermetropia 71911516 H 52.03 Astigmatism 69994395 H52 .223 Bilateral cataracts 9572 2003 H26.9 Pseudoexfo liation of lens capsule 70446500 H26.8 [id number] Angeline Tan, OD Eye Care, [address] [address] 09/19/2018 10:31:12 09/19/2018 13:00:37 Hypermetropia 81898024 H52.03 Astigmatism 90878244 H52 .223 Bilateral cataracts 9572 2003 H26.9 Presbyopia 61777514 H52. 4 Pseudoexfo liation glaucoma 735520018 H40.5314 [id number] Angeline Tan, OD Eye Care, [address] [address] 10/30/2019 10:38:44 10/30/2019 16:41:46 Hypermetropia 86216458 H52.03 Astigmatism 37213471 H52 .223 Bilateral cataracts 9572 2003 H26.9 Presbyopia 02070351 H52. 4 Ocular hypertension 4210 003 H40.053 Pseudoexfo liation of bilateral lens capsules 8487446986 3001888 H26.8 [id number] [place] Steven Tan, OD Eye Care, [address] [address] 11/14/2019 13:12:56 11/15/2019 16:15:51 Bilateral cataracts 63973268 H26.9 Pseudoexfo liation glaucoma 191794912 H40.1490 Health Concerns Section Related Observation LastModified by Organization Detai ls LastModified Time None Recorded Concern Status LastModified by Organization Details LastModified Time None Recorded Advance Directives Directive None Recorded Payers Encounter Date Sequence Insurance Name Policy Number Policy Leary Covered Member ID Leary Member ID Guarantor Name 07/13/2016 2 [place] Valorie D Burt [id number] Valorie D Burt 07/13/2016 1 [place] [employer] Valorie D Burt [id number] Valorie D Burt 07/19/2017 2 [place] Valorie D Burt [id number] Valorie D Burt 07/19/2017 1 [place] [employer] Valorie D Burt [id number] Valorie D Burt 09/19/2018 2 [place] Valorie D Burt [id number] Valorie D Burt 09/19/2018 1 [place] [employer] Valorie D Burt [id number] Valorie D Burt 10/30/2019 2 [place] Valorie D Burt [id number] Valorie D Burt 10/30/2019 1 [place] [employer] Valorie D Burt [id number] Valorie D Burt 11/14/2019 2 [place] Valorie D Burt [id number] Valorie D Burt 11/14/2019 1 [place] [employer] [employer] Valorie D Burt [id number] Valorie D Burt Notes Date Note Type Note Provider Name and Address Organization Details Recorded Time 07/13/2016 text/html Comprehensive Ey e ExamReported bypatient.Quality:2 year exam;blurred vision near and distance without glasses Context:currently wears glasses Modifying factors:wears glasses for readers only Associated Symptoms:no redness; no itching; no floaters; no dryness Dominik Lagunas, OD [address] [place], [address], [facility] 07/13/2016 11:32:21 07/19/2017 text/html Comprehensive Ey e ExamReported bypatient.Quality:1 year exam; no blurred vision Location:bilateral Context:currently wears glasses Modifying factors:wears glasses for distance and near Associated Symptoms:no redness; no itching; no floaters; no dryness Angeline Tan, OD [address] [place], [address], [facility] 07/19/2017 11:07:59 09/19/2018 text/html Comprehensive Ey e ExamReported bypatient.Quality:1 year exam; no blurred vision Location:bilateral Context:currently wears glasses Modifying factors:wears glasses for distance and near Associated Symptoms:no itching; no floaters Angeline Tan, OD [address] [place], [address], [facility] 09/19/2018 12:02:58 10/30/2019 text/html Comprehensive Ey e ExamReported bypatient.Quality:1 year exam; no blurred vision Location:bilateral Context:currently wears glasses Modifying factors:wears glasses for distance and near Associated Symptoms:no itching; no floaters Angeline Tan, OD [address] [place], [address], [facility] 10/30/2019 13:38:02 11/14/2019 text/html Ocular hypertension Angeline Tan, OD [address] [place], [address], [facility] 11/14/2019 17:34:24 OBGyn Episode No OBEpisode recorded.
--- OUTSIDE RECORDS SUMMARY | 2024-12-20 13:10 | XMS_ITS | Data Portability ---
Author Organization [email or web address] Address [address] [place] [phone] Care Team Providers Care Certified Phlebotomist Name Role Phone HIM CCA OTHER Assessment Encounter Date Assessment Date Assessment LastModified by Organization Details LastModified Time 11/05/2024 11/05/2024 I provided real -time medical direction via phone for this encounter and was available for additional phone-based assistance as needed. I have reviewed and agree with the Assessment and Plan as documented by the Centerless Grinder Operator. Patient given the opportunity to ask questions. Our service contacted for an assessment of: Chronic right hip pain As per above, patient with hx of chronic pain. No new or worsening red S&S. No new gait abnl. No new signs, symptoms or deficits. Per lubrication supervisor on the scene, VSS, non-toxic. No CKI and not on blood thinners. Has not taken NSAID today Has a h/o of HTN and noted SBP around 180. Patient adherent to medication regimen. Denies symptoms Impression: Chronic right hip pain Plan: Toradol 15 mg IM times one. F/u with PCP. Red flags to be discussed as to when to seek a higher level of care. We discussed the diagnostic uncertainty of home visits and the risk associated with this. In this case, the patient and I felt this to be an acceptable and reasonable amount of risk given the benefit of avoiding an ED visit. We discussed the need to seek care urgently/emerg ently in the setting of any new or worsening serious symptoms [email or web address] Not available 11/05/2024 18:00:22 Plan of Treatment Reminders Order Date Submit Date Provider Last Modified By Organization Details Last Modified Time Details Appointments None recorded. Lab None recorded. Referral None recorded. Procedures None recorded. Surgeries None recorded. Imaging None recorded. Medication Orders ketorolac 15 mg/mL injection solution 2024 025 [email or web address] Not available 15:54:23 Patient TargetsNo targets recorded. Patient InstructionsNo instructions recorded. Reason for Referral None Reported. Medical Equipment None Reported. Allergies No known drug allergies Medications Name Sig Start Date Stop Date Status Note LastModified by Organization Details LastModified Time prednisone 5 mg tablet TAKE 1 TABLET BY MOUTH EVERY DAY active Not Available Not Available No t Available doxycycline monohydrate 100 mg tablet TAKE 1 TAB ORALLY 2 TIMES A DAY FOR 14 DAYS active Not Available Not Available No t Available cyanocobalami n (vit B-12) 500 mcg tablet TAKE 1 TABLET BY MOUTH DAILY active Not Available Not Available No t Available prednisone 2.5 mg tablet TAKE 3 TABLETS BY MOUTH EVERY DAY active Not Available Not Available No t Available clotrimazole- betamethasone 1 %-0.05 % topical cream APPLY TO AFFECTED AREA TWICE A DAY FOR 14 DAYS active Not Available Not Available No t Available clotrimazole 1 % topical cream 1 APPL TOPICALLY 2 TIMES A DAY FOR 4 WEEKS active Not Available Not Available No t Available Vitals Date Recorded Oxygen saturation Oxygen saturation in Arterial blood by Pulse oximetry Body temperature Body weight Heart rate Respiratory rate Systolic blood pressure Diastolic blood pressure Provider Name and Address Organization Details Last Updated DateTime 98 % 98 % 98.1 [degF] 35250.0 24 g 67 /min 18 /min 181 mm[Hg] 70 mm[Hg] Not Available [employer] [facility] [employer] 15:52:02 Social History None recorded. Functional Status None recorded. Mental Status None recorded. Family History Nothing Reported. Medical History No medical history recorded. Gynecological HistoryNo gynecological history recorded. Obstetrics History GPAL:G 0 P 0 0 0 0 Past Encounters Encounter ID Performer Location Encounter Start Date Encounter Closed Date Diagnosis/Indication Diagnosis SNOMED-CT Code Diagnosis ICD10 Code Diagnosis Note [id number] Shivani Esteban MD [facility] [address] [place] [phone] 11/05/2024 15:52:00 11/05/2024 21:32:29 Pain in right hip joint 4817397280 17366 M25.551 Essential hypertension 10125721 I10 Health Concerns Section Related Observation LastModified by Organization Detai ls LastModified Time None Recorded Concern Status LastModified by Organization Details LastModified Time None Recorded Advance Directives Directive None Recorded Payers Encounter Date Sequence Insurance Name Policy Number Policy Leary Covered Member ID Leary Member ID Guarantor Name 11/05/2024 1 [facility] - DOS ON OR AFTER 2022 - DUAL ELIGIBLE - [facility] [employer] AND ONE [employer] (MEDICARE REPLACEMENT/ADV ANTAGE - HMO) Valorie Dallas [id number] Valorie Dallas Notes Date Note Type Note Provider Name and Address Organization Details Recorded Time 11/05/2024 text/html HPI: Member's daughter calling into [facility] nurse line, she reports member has rt hip pain. Member has hx of sarcoidosis, chronic pain and scoliosis. Member has been taking prednisone with some relief. She is requesting home visit for pain management. Member denies, redness, fever, numbness or tingling. At baseline member has lower extremity swelling. No increase in swelling reported. .................. .................. .................. .................. .................. .................. .................. ............... [facility] Nurse Triage Notes (Balbina Blanton): Chief Complaints: Extremity Pain PMH: Chronic Back Pain, Chronic Pain, Congestive Heart Failure PMH Reviewed at 11/05/2024 - 12:41 Allergies Reviewed at 11/05/2024 - 12:41 Comments: [facility] RN did not require any additional information to process this visit. .................. .................. .................. .................. .................. .................. .................. ............... Centerless Grinder Operator Note From Pamela Mendosa: Sent to a call for a pt complaining of hip pain. SC8 arrives on scene, pt is alert and oriented, airway is patent. Allergies: NKDA; Pt has chronic pain and takes Prednisone 5mg daily. Pt complains of atraumatic right lower back pain radiating to buttocks, lateral leg to knee. Pt states she has had similar pain in the past. Pt requesting pain management. Pt denies history of CKD, bleeding, or being on blood thinners. Pt denies doshi, dizziness, cp, sob, n/v/d, abd pain, fever, or loc. BP:181/70, P:67, RR:18, SpO2:98% RA, T:98.1; Head: unremarkable; Lung sounds: clear bilaterally; Abdomen: soft, non-tender, no distention; Back: unremarkable; Extremities: unremarkable; Skin: pink, warm, dry; [facility] Ketorolac 15mg IM. Ketorolac 15mg IM administered without incident. Red flags discussed. Pt will follow up with PCP. Pt has no further questions. [facility] Orders: ketorolac 15 mg/mL injection solution: Administered .................. .................. .................. .................. .................. .................. .................. ............... [facility] [place]ed: Shivani Esteban .................. .................. .................. .................. .................. .................. .................. ............... Disposition: Fulfilled Shivani Esteban MD [address] [facility],[address], [place], [phone], [facility] [employer] [facility] 11/05/2024 18:00:36 OBGyn Episode No OBEpisode recorded.
== END 2024-12-20 11:19 | disposition home or self-care (01) ==
LOC: HO.HPS 10:51
PROVIDERS: PCP Family Medicine; Visit Provider Hospitalist
DX: D86.9 Sarcoidosis, unspecified (principal); R91.8 Other nonspecific abnormal finding of lung field; K74.60 Unspecified cirrhosis of liver; R59.1 Generalized enlarged lymph nodes; R76.8 Other specified abnormal immunological findings in serum; R21 Rash and other nonspecific skin eruption
CPT/HCPCS: 99214; G2211

== ENCOUNTER → 2024-12-20 10:50 | Outpatient (BNVA) | payer OTHER, SELFPAY | PROVIDERS: PCP Family Medicine; Visit Provider Hospitalist | DX: D86.9 Sarcoidosis, unspecified (principal); R19.8 Other specified symptoms and signs involving the digestive system and abdomen; R59.1 Generalized enlarged lymph nodes; R76.8 Other specified abnormal immunological findings in serum; R21 Rash and other nonspecific skin eruption; K74.60 Unspecified cirrhosis of liver | CPT/HCPCS: 99212 ==

== ENCOUNTER 2025-02-06 08:05 | Outpatient (REF) | payer OTHER, SELFPAY ==
--- NOTE | ~2025-02-06 | US_ITS ---
EXAMINATION: US ABDOMEN COMPLETE WITH LIVER ELASTOGRAPHY HISTORY: K74.60 - Unspecified cirrhosis of liver TECHNIQUE: Real-time grayscale ultrasound imaging of the abdomen was performed and images were reviewed. COMPARISON: Comparison is made with the prior examination dated 05/12/2022. FINDINGS: Liver: The right lobe of the liver measures 15.9 cm in size. The left lobe of the liver measures 12.4 cm in size. The liver demonstrates a lobular contour, consistent with cirrhosis. No focal mass or intrahepatic biliary ductal dilatation is identified. There is normal hepatopedal flow in the portal vein. Ultrasound elastography of the liver was performed with 10 separate measurements of the liver parenchyma with the patient in the supine position. Measurements were obtained approximately 2 cm below Katia's capsule and perpendicular to the capsule. Images are of satisfactory quality. The median shear wave velocity is 1.31 m/s (previously 1.75 m/s). The interquartile range/median (IQR/median) is 0.15. Gallbladder and biliary tree: The gallbladder is surgically absent. The common bile duct is normal in caliber measuring 3 mm. Kidneys: The right kidney measures 10.3 cm in length. The left kidney measures 10.4 cm in length. The kidneys are unremarkable, without evidence of masses, hydronephrosis, or calculi. Pancreas: The pancreatic head, neck, and body are unremarkable. The pancreatic tail is obscured by bowel gas. Spleen: The spleen is normal in size and contour, measuring 8.6 cm in length. Abdominal aorta and inferior vena cava: The visualized portions of the abdominal aorta and inferior vena cava are normal in caliber. There is no free fluid in the abdomen. US/US abdomen comp w elastography IMPRESSION: Hepatic cirrhosis. The median shear wave velocity in the liver is 1.31 m/s, corresponding to a median liver stiffness of 5.18 kPa. The IQR/median value is 0.15. This is indicative of a poor quality data set, and the estimated liver stiffness may be unreliable. Findings are indicative of a low elastography value which rules out advanced chronic liver disease in asymptomatic patients. REFERENCE: Society of Radiologists in Ultrasound Liver Stiffness Thresholds (2020): LIVER STIFFNESS THRESHOLDS: *Shear wave velocity less than 1.3 m/s (Liver Stiffness equal or less than 5 kPa): High probability of being normal. *Shear wave velocity less than 1.7 m/s (Liver Stiffness less than 9 kPa): In the absence of other known clinical signs, rules out compensated advanced chronic liver disease. *Shear wave velocity between 1.7-2.1 m/s (Liver Stiffness 9-13 kPa): Suggestive of compensated advanced chronic liver disease but need further test for confirmation. *Shear wave velocity between 2.1-2.4 m/s (Liver Stiffness 13-17 kPa): Rules in compensated advanced chronic liver disease. *Shear wave velocity greater than 2.4 m/s (Liver Stiffness over 17 kPa): Suggestive of clinically significant portal hypertension. QUALITY OF DATA SET: *IQR/Median value equal or less than 0.15 implies a quality data set. *IQR/Median value over 0.15 implies a poor quality data set. SIGNIFICANT CHANGE FROM PRIOR EXAM: Significant change if liver stiffness measurement is 10% or greater from prior exam. OTHER CONSIDERATIONS: The stage of liver fibrosis may be overestimated in the setting of acute hepatitis, liver inflammation, elevated liver function tests, hepatic vascular congestion, obstructive cholestasis, non-fasting state, and infiltrative diseases such as amyloidosis and lymphoma. In some patients with NAFLD, the liver stiffness thresholds for compensated advanced chronic liver disease may be lower. In causes other than viral hepatitis and NAFLD, liver stiffness thresholds are not well established. Electronically signed by: Walter Cordon MD 02/06/2025 09:15 AM EDT
--- OUTSIDE RECORDS SUMMARY | 2025-02-06 08:10 | XMS_ITS | Data Portability ---
Author Organization [facility], , [facility] Address [address] [place] [address] Assessment No assessment recorded. Plan of Treatment [...] By Organization Details Last Modified Time 07/13/2016 [id number] RX given for glasses-lens options discussed including bifocal or separate reading and distance Discussed cataracts-not visually significant at this time. [email or web address] Not available 07/13/2016 11:31:19 07/19/2017 [id number] Glasses Rx was given. Monitor cataract OU. Monitor PES OD and OS. Not available 07/19/2017 11:07:37 09/19/2018 [id number] Glasses Rx was given. Monitor cataract OU. PES OD and OS with increased IOP 21/21 at this visit. ONH Pictures taken. RTC for IOP recheck and VF OCT tests in a few months or sooner if any other eye signs. Not available 09/19/2018 12:01:48 10/30/2019 [id number] Glasses Rx was given. Monitor cataract OU. PES OD and OS with increased IOP 21/21 at this visit. ONH Pictures taken. RTC for VF OCT tests in a few months or sooner if any other eye signs. Not available 10/30/2019 13:36:22 11/14/2019 [id number] PES OD and OS with increased IOP [...] Recorded Time Combined form of senile cataract 33478599 Active 2015 Dominik Bebo, OD [address] [place] [address], [phone] , [facility] 6 11:31:30 Hip stiff 928909938 Completed 200007/25/2013 Not Available [facility] 3 02:04:28 Presbyopia 07904524 Active 2002 Not Available [facility] 3 03:04:45 Ureteric stone 60743212 Active 2000 Not Available [facility] 3 03:04:45 Palpitatio ns 48331457 Active 2004 Not Available [facility] 3 03:04:45 Pain of shoulder region 18014252 Completed 200307/25/2013 Not Available [facility] 3 02:01:02 Myopia 29676321 Active 2008 Not Available [facility] 3 03:04:45 Astigmatis m 97198533 Active 2008 Not Available [facility] 3 03:04:45 Skin sensation disturbanc e 49525839 Completed 200407/25/2013 Not Available [facility] 3 02:03:10 Neck pain 70909149 Completed 200107/25/2013 Not Available [facility] 3 02:00:36 Pain of hip region 05560131 Completed 200007/25/2013 Not Available [facility] 3 02:01:32 Disorder of skin and/or subcutaneo us tissue 84096196 Completed 200507/25/2013 Not Available [facility] 3 02:03:55 Disorder of sacrum 56620025 Active 2000 Not Available [facility] 3 03:04:45 Dizziness 076045249 Completed 200307/25/2013 Not Available [facility] 3 02:02:09 Major depression , melancholi c type 997091748 Active 2004 Not Available [facility] 3 03:04:45 Neoplasm of uncertain behavior of skin 16669715 Completed 200507/25/2013 Not Available [facility] 3 02:01:52 Common cold 93919072 Completed 200107/25/2013 Not Available [facility] 3 02:00:29 Pain of joint 46386910 Active 2004 Not Available [facility] 3 03:04:45 Sprain of shoulder and upper arm Completed 200307/25/2013 Not Available [facility] 3 02:03:37 Senile osteoporos is 14899099 Active 2004 Not Available [facility] 3 03:04:45 Inflamed seborrheic keratosis 679005570 Completed 200507/25/2013 Not Available [facility] 3 02:03:38 Menopausal symptom 96551999 Completed 200407/25/2013 Not Available [facility] 3 02:01:29 Low back pain 848779825 Active 2000 Not Available [facility] 3 03:04:45 Backache 426023927 Completed 200107/25/2013 Not Available [facility] 3 02:01:13 Malaise and fatigue 978495184 Completed 200307/25/2013 Not Available [facility] 3 02:00:19 Blood in urine 06823234 Active 2000 Not Available [facility] 3 03:04:45 Problem Notes None recorded. Procedures Surgical History Date Name Laterality Status Provider Name and Address Organization Details Recorded Time 0 Pachymetry completed Angeline Tan OD [address] [place] [address], [phone], [facility] 10/30/2019 11:00:07 0 Fundus Photography completed Angeline Tan OD [address] [place] [address], [phone], [facility] 10/30/2019 10:45:05 0 Refraction completed Angeline Tan, OD [address] [place], [address], [facility] 10/30/2019 10:45:05 9 Fundus Photography completed Angeline Tan, OD [address] [place], [address], [facility] 09/19/2018 11:44:14 9 Refraction completed Angeline Tan, OD [address] [place], [address], [facility] 09/19/2018 11:01:43 7 Refraction completed Chandra Paul [facility] 07/19/2017 10:24:19 Imaging Results None recorded. Procedure [...] SNOMED-CT Code Diagnosis ICD10 Code Diagnosis Note [id number] Sweetie Alfaro, PT Physical Therapy, [address] [address] 12/29/2000 15:00:00 09/25/2008 02:02:29 [id number] Sweetie Alfaro, PT Physical Therapy, [facility] [address] [place] [address] 01/12/2001 17:30:00 09/25/2008 02:02:29 [id number] Sweetie Alfaro, PT Physical Therapy, [facility] [address] [place] [address] 01/03/2001 08:30:00 09/25/2008 02:02:29 [id number] Alan Nichols III, MD , [facility], OFFICE [address] [place] [address] 03/07/2001 08:15:00 09/25/2008 02:02:29 [id number] [facility] MAMMOGRAPH Y Technologi st Radiology , [facility] [address] [place] [address] 08/07/2001 09:00:00 09/25/2008 02:02:29 [id number] Alan Nichols III, MD , [facility], OFFICE [address] [place] [address] 10/24/2001 17:15:00 09/25/2008 02:02:29 [id number] [facility] RADIOLOGY Technologi st Radiology , [facility] [address] [place] [address] 11/09/2001 16:00:00 09/25/2008 02:02:29 [id number] Alan Nichols III, MD , [facility], [address] [place] [address] 11/09/2001 16:00:00 09/25/2008 02:02:29 [id number] Talia ARMSTRONG , [facility], OFFICE [address] [place] [address] 10/01/2002 15:06:53 09/25/2008 02:02:29 [id number] [facility], [facility] [address] [place] [address] 10/23/2002 16:40:45 09/25/2008 02:02:29 [id number] Daryn Leavitt, OD Eye Care, [facility] [address] [place] [address] 10/23/2002 15:05:51 09/25/2008 02:02:29 [id number] Raciel Rutledge PA-C , [facility], OFFICE [address] [place] [address] 02/06/2003 15:30:07 09/25/2008 02:02:29 [id number] Yodit Menon MD , [facility], OFFICE [address] [place] [address] 03/19/2003 14:53:21 09/25/2008 02:02:29 [id number] FP TREATMENT NURSE [facility], [facility], OFFICE [address] [place] [address] 04/02/2003 12:40:20 09/25/2008 02:02:29 [id number] FP TREATMENT NURSE [facility], [facility], OFFICE [address] [place] [address] 04/04/2003 13:10:03 09/25/2008 02:02:29 [id number] Zackary Melissa MD , [facility], OFFICE [address] [place] [address] 09/24/2003 13:44:38 09/25/2003 08:46:55 [id number] Tasha Small Physical Therapy, [address] [place] [address] 09/30/2003 13:36:18 09/30/2003 13:37:11 [id number] Tasha Small Physical Therapy, [address] [place] [address] 10/02/2003 16:17:35 10/02/2003 16:59:26 [id number] [facility] LAB LAB - [address] [place] [address] 02/25/2004 12:36:30 02/25/2004 12:50:56 [id number] Yodit Menon MD , [facility], [address] [place] [address] 02/25/2004 09:45:12 02/26/2004 08:35:43 [id number] Yodit Menon MD , [facility] [address] [place] [address] 08/14/2004 14:54:26 08/18/2004 08:50:52 [id number] Freeman Bullock i, PT Physical Therapy, [address] [place] [address] 12/08/2004 09:51:07 12/08/2004 09:58:57 [id number] Freeman Bullock i, PT Physical Therapy, [address] [place] [address] 12/10/2004 10:27:36 12/10/2004 12:16:12 [id number] Freeman Bullock i, PT Physical Therapy, [facility] [place] [address] 12/15/2004 09:51:17 12/15/2004 11:50:02 [id number] Freeman Bullock i, PT Physical Therapy, [facility] [place] [address] 12/22/2004 10:43:42 12/22/2004 12:50:12 [id number] Freeman Bullock i, PT Physical Therapy, [facility] [place] [address] 12/24/2004 09:35:58 12/24/2004 10:16:35 [id number] Freeman Bullock i, PT Physical Therapy, [facility] [place] [address] 12/29/2004 10:00:40 12/29/2004 10:38:13 [id number] Freeman Bullock i, PT Physical Therapy, [facility] [place] [address] 12/31/2004 10:23:34 12/31/2004 11:23:35 [id number] Freeman Bullock i, PT Physical Therapy, [facility] [place] [address] 01/05/2005 08:43:05 01/05/2005 09:41:07 [id number] Freeman Bullock i, PT Physical Therapy, [facility] [place] [address] 01/08/2005 09:41:29 01/11/2005 10:02:04 [id number] Freeman Bullock i, PT Physical Therapy, [facility] [place] [address] 01/12/2005 09:21:14 01/12/2005 10:58:56 [id number] Freeman Bullock i, PT Physical Therapy, [facility] [place] [address] 01/15/2005 09:30:18 01/15/2005 10:25:20 [id number] Freeman Bullock i, PT Physical Therapy, [facility] [place] [address] 01/22/2005 09:27:10 01/22/2005 10:34:03 [id number] Freeman Bullock i, PT Physical Therapy, [facility] [address] [place] [address] 01/28/2005 08:56:59 01/28/2005 10:25:01 [id number] Freeman Bullock i, PT Physical Therapy, [facility] [place] [address] 02/04/2005 10:38:57 02/04/2005 10:39:24 [id number] Freeman Bullock i, PT Physical Therapy, [facility] [place] [address] 02/08/2005 09:31:12 02/08/2005 12:52:10 [id number] [facility] LAB LAB - [address] [place] [address] 03/11/2005 09:39:38 03/11/2005 09:40:00 [id number] Ashley Roberts. , [facility], OFFICE [address] [place] [address] [place] [address] 03/11/2005 09:09:08 03/12/2005 09:13:17 [id number] Yodit Menon MD , [facility], OFFICE [address] [place] [address] [place] [address] 04/02/2005 10:48:43 04/05/2005 11:01:03 [id number] [facility] LAB LAB - [facility] [place] [address] 04/06/2005 07:45:05 04/06/2005 09:27:59 [id number] [facility] MAMMOGRAPH Y Technologi st Radiology , [address] [place] [address] 04/27/2005 10:13:14 04/27/2005 10:39:55 [id number] [facility] BONE DENSITY Radiology , [address] [place] [address] 04/27/2005 10:48:52 04/27/2005 11:34:48 [id number] Alan Nichols III, MD , [facility], OFFICE [address] [place] [address] [place] [address] 06/02/2005 09:08:33 06/03/2005 07:48:39 [id number] Yodit Menon MD , [facility], OFFICE [address] [place] [address] 05/31/2005 09:42:36 06/07/2005 08:24:28 [id number] Yodit Menon MD , [facility], OFFICE [address] [place] [address] 08/17/2005 14:32:43 08/18/2005 09:36:26 [id number] Yodit Menon MD , [facility], OFFICE [address] [place] [address] 04/05/2006 13:57:22 04/05/2006 16:09:47 [id number] [facility] LAB LAB - [address] [place] [address] 04/13/2006 10:41:46 04/13/2006 10:41:53 [id number] [facility] MAMMOGRAPH Y Technologi st Radiology , [address] [place] [address] 05/12/2006 13:26:55 05/12/2006 16:47:56 [id number] Yodit Menon MD , [facility], OFFICE [address] [place] [address] 05/30/2006 09:28:18 05/31/2006 12:32:02 [id number] Yodit Menon MD , [facility], OFFICE [address] [place] [address] 06/09/2006 11:02:26 06/13/2006 08:25:59 [id number] Lissette Parikh , [facility], OFFICE [address] [place] [address] 09/01/2006 10:00:18 09/01/2006 14:25:08 [id number] [facility], [address] [place] [address] 04/15/2009 11:24:22 04/16/2009 12:06:59 [id number] Daryn Leavitt, OD Eye Care, [address] [place] [address] 04/15/2009 10:10:16 04/16/2009 12:32:04 [id number] Daryn Leavitt OD Eye Care, [address] [place] [address] 04/15/2009 00:00:00 07/03/2009 02:00:52 [id number] Dominik Lagunas OD Eye Care, [address] [place] [address] 07/13/2016 09:41:32 07/13/2016 11:36:04 Presbyopia 80565663 H52.4 Hypermetropia 26937306 H 52.03 Combined f orm of senile cataract 78277707 H25.813 cataracts- not visually significan t [id number] Angeline Tan, OD Eye Care, [address] [address] 07/19/2017 10:01:33 07/19/2017 11:08:06 Presbyopia 83097659 H52.4 Hypermetropia 70289720 H 52.03 Astigmatism 66962844 H52 .223 Bilateral cataracts 9572 2003 H26.9 Pseudoexfo liation of lens capsule 85137953 H26.8 [id number] Angeline Tan, OD Eye Care, [address] [address] 09/19/2018 10:31:12 09/19/2018 13:00:37 Hypermetropia 89453519 H52.03 Astigmatism 37287417 H52 .223 Bilateral cataracts 9572 2004 H26.9 Presbyopia 56711401 H52. 4 Pseudoexfo liation glaucoma 672278777 H40.8617 [id number] Angeline Tan, OD Eye Care, [address] [address] 10/30/2019 10:38:44 10/30/2019 16:41:46 Hypermetropia 91815388 H52.03 Astigmatism 06853051 H52 .223 Bilateral cataracts 9572 2003 H26.9 Presbyopia 05546218 H52. 4 Ocular hypertension 4210 003 H40.053 Pseudoexfo liation of bilateral lens capsules 1328584375 4307834 H26.8 [id number] Angeline Tan, OD Eye Care, [address] [address] 11/14/2019 13:12:56 11/15/2019 16:15:51 Bilateral cataracts 47123401 H26.9 Pseudoexfo liation glaucoma 818137753 H40.1490 Health Concerns Section Related Observation LastModified by Organization Detai ls LastModified Time None Recorded Concern Status LastModified by Organization Details LastModified Time None Recorded Advance Directives Directive None Recorded Payers Encounter Date Sequence Insurance Name Policy Number Policy Leary Covered Member ID Leary Member ID Guarantor Name 07/13/2016 2 [place] [facility] Valorie [place] [id number] Valorie D Burt 07/13/2016 1 [place] [employer] Valorie D Burt [id number] Valorie D Burt 07/19/2017 2 [place] Valorie D Burt [id number] Valorie D Burt 07/19/2017 1 [place] [employer] Valorie D Burt [id number] Valorie D Burt 09/19/2018 2 [place] Valorie D Burt [id number] Valorie D Burt 09/19/2018 1 [place] [employer] Valorie D Burt [id number] Valorie D Burt 10/30/2019 2 [place] Valorie D Burt [id number] Valorie D Burt 10/30/2019 1 [place] [employer] Valorie D Burt [id number] Valorie D Burt 11/14/2019 2 [place] Valorie D Burt [id number] Valorie D Burt 11/14/2019 1 [place] [employer] Valorie D Burt [id number] Valorie D Burt Notes Date Note Type Note Provider Name and Address Organization Details Recorded Time 07/13/2016 text/html Comprehensive Ey e ExamReported bypatient.Quality:2 year exam;blurred vision near and distance without glasses Context:currently wears glasses Modifying factors:wears glasses for readers only Associated Symptoms:no redness; no itching; no floaters; no dryness Dominik Lagunas, [address], [address], [facility] 07/13/2016 11:32:21 07/19/2017 text/html Comprehensive Ey e ExamReported bypatient.Quality:1 year exam; no blurred vision Location:bilateral Context:currently wears glasses Modifying factors:wears glasses for distance and near Associated Symptoms:no redness; no itching; no floaters; no dryness Angeline Tan, OD [address] [place], [address], [facility] 07/19/2017 11:07:59 09/19/2018 text/html Comprehensive Ey e ExamReported bypatient.Quality:1 year exam; no blurred vision Location:bilateral Context:currently wears glasses Modifying factors:wears glasses for distance and near Associated Symptoms:no itching; no floaters Angeline Tan, OD [address] [place], [address], [facility] 09/19/2018 12:02:58 10/30/2019 text/html Comprehensive Ey e ExamReported bypatient.Quality:1 year exam; no blurred vision Location:bilateral Context:currently wears glasses Modifying factors:wears glasses for distance and near Associated Symptoms:no itching; no floaters Angeline Tan, OD [address] [place], [address], [facility] 10/30/2019 13:38:02 11/14/2019 text/html Ocular hypertension Angeline Tan, OD [address] [place], [address], [facility] 11/14/2019 17:34:24 OBGyn Episode No OBEpisode recorded.
== END 2025-02-06 08:06 | disposition home or self-care (01) ==
LOC: HO.US 08:05
PROVIDERS: PCP Family Medicine; Visit Provider Hospitalist
DX: K74.60 Unspecified cirrhosis of liver (principal)
CPT/HCPCS: 76700; 76981

== ENCOUNTER → 2025-02-06 08:07 | Outpatient (BNV) | payer OTHER, SELFPAY | PROVIDERS: PCP Family Medicine; Visit Provider Radiology Diagnostic Radiology | DX: K74.60 Unspecified cirrhosis of liver (principal) | CPT/HCPCS: 76700; 76981 ==